=== PATIENT | male | born 1960 | race Caucasian/White ===

== ENCOUNTER → 2016-04-13 | Outpatient (CLI) | payer OTHER ==
[~2016-04-13] MED LIST: ALBU83IN INH; GABA-279 PO; IBUP200C PO; VITA500046 PO
--- NOTE | 2016-04-15 09:45 | REP ---
MRI LUMBAR SPINE WITHOUT CONTRAST: HISTORY: Back pain. COMPARISON: 06/19/2015. Decreased signal intensity on T2-weighted images is present in the lumbar intervertebral discs. The discs are decreased in height. These findings are consistent with disc degeneration. A diffuse disc bulge is present at the L1-2 level. There is minimal compression at the thecal sac. The L1 nerves exit the neural foramina without compression. A diffuse disc bulge is present at the L2-3 level. There is minimal compression of the thecal sac. There is hypertrophy of the posterior articulating facets. A small right intraforaminal and lateral disc protrusion is present. There is posterolateral displacement of the right L2 nerve distal to the neural foramen. The left L2 nerve exits the neural foramen without compression. A diffuse disc bulge is present at the L3-4 level. There is hypertrophy of the ligamenta flava and posterior articulating facets. These findings produce mild central canal stenosis. The L3 nerves exit the neural foramina without compression. A diffuse disc bulge is present at the L4-5 level. There is hypertrophy of the ligamenta flava and posterior articulating facets. These findings produce moderate central canal stenosis. There is compression of the L4 nerves in the neural foramina. A diffuse disc bulge is present at the L5-S1 level. There is no thecal sac compression. There is hypertrophy of the ligamenta flava and posterior articulating facets. There is compression of the right L5 nerve in the neural foramen. The left L5 nerve exits the neural foramen without compression. The conus medullaris is normal in appearance terminating at the level of the L1-2 intervertebral disc. Increased signal intensity on T2-weighted images is present in the end plates of the L1-S1 vertebral bodies. This represents degenerative change. IMPRESSION: 1. Diffuse disc bulge at the L1-2 level with minimal thecal sac compression. 2. Diffuse disc bulge at the L2-3 level with minimal thecal sac compression. A small right intraforaminal and lateral disc protrusion is present. There is posterolateral displacement of the right L2 nerve distal to the neural foramen. 3. Mild central canal stenosis at the L3-4 level secondary to disc bulge, ligamentous and facet hypertrophy. 4. Moderate central canal stenosis at the L4-5 level secondary to disc bulge, ligamentous and facet hypertrophy. There is compression of the L4 nerves in the neural foramina. 5. Diffuse disc bulge at the L5-S1 level without thecal sac compression. There is compression of the right L5 nerve in the neural foramen. There is no significant change compared to the previous study. Signed by Freddie García MD 04/15/2016 09:51 A
== END | disposition home or self-care (01) ==
LOC: M RAD 11:49
PROVIDERS: ATTEND Physician Assistant Medical
DX: M51.06 Intervertebral disc disorders with myelopathy, lumbar region (principal); M48.06 Spinal stenosis, lumbar region; M51.17 Intervertebral disc disorders with radiculopathy, lumbosacral region

== ENCOUNTER → 2016-04-19 | Outpatient (CLI) | payer OTHER ==
[2016-04-19 16:37] LABS: BASO # 0.1 K/mm3 (0.0-0.2); EOS # 0.2 K/mm3 (0.0-0.50); EOS % 3.6 % (0.0-3.0); LYMPH # 2.6 K/mm3 (1.5-4.5); LYMPH % 37.9 % (24.0-44.0); MEAN CORPUSCULAR HEMOGLOBIN 33.5 pg (27.0-33.0); MEAN CORPUSCULAR HGB CONC 33.8 g/dl (32.0-36.5); MEAN CORPUSCULAR VOLUME 98.9 fl (80.0-96.0); MONO # 0.5 K/mm3 (0.0-0.8); MONO % 7.5 % (0.0-5.0); NEUTROPHILS % 47.3 % (36.0-66.0); RED CELL DISTRIBUTION WIDTH 12.4 % (11.5-14.5); WHITE BLOOD COUNT 6.4 K/mm3 (4.0-10.0)
[2016-04-19 16:58] LABS: ALBUMIN 3.7 GM/DL (3.2-5.2); ALBUMIN/GLOBULIN RATIO 0.86 (1.00-1.93); ALKALINE PHOSPHATASE 73 U/L (45-117); ALT/SGPT 20 U/L (12-78); ANION GAP 8 MEQ/L (8-16); AST/SGOT 17 U/L (15-37); BILIRUBIN,TOTAL 0.5 MG/DL (0.2-1.0); BLOOD UREA NITROGEN 4 MG/DL (7-18); CALCIUM LEVEL 9.1 MG/DL (8.5-10.1); CARBON DIOXIDE LEVEL 27 MEQ/L (21-32); CHLORIDE LEVEL 104 MEQ/L (98-107); CHOLESTEROL LEVEL 229 MG/DL (<200); GLOMERULAR FILTRATION RATE > 60.0 (>56); GLUCOSE, FASTING 81 MG/DL (70-105); POTASSIUM SERUM 4.3 MEQ/L (3.5-5.1); SODIUM LEVEL 139 MEQ/L (136-145); TRIGLYCERIDES LEVEL 107 MG/DL (<150)
== END | disposition home or self-care (01) ==
LOC: M LAB 15:47
PROVIDERS: ATTEND Physician Assistant Medical
DX: E55.9 Vitamin D deficiency, unspecified (principal); E78.2 Mixed hyperlipidemia

== ENCOUNTER → 2017-02-03 | Outpatient (CLI) | payer OTHER ==
[~2017-02-03] MED LIST changes: -IBUP200C PO; +IBUP200C10 PO
--- NOTE | 2017-02-03 15:51 | REP ---
Clinical: Hyperlipidemia . Comparison: 09/20/2015 . Technique: PA and lateral. Findings: The mediastinum and cardiac silhouette are normal. The lung campos are clear and without acute consolidation, effusion, or pneumothorax. The skeletal structures are intact and normal. Impression: 1. No acute cardiopulmonary process. Signed by Kai Dexter MD 02/03/2017 03:42 P
--- NOTE | 2017-02-03 16:14 | REP ---
Clinical: Pain with prior trauma. Technique: AP, lateral, and sunrise views of the right knee. Findings: Age-appropriate changes to the knee include cortical irregularity primarily involving the medial femoral condyle and minimal medial joint space narrowing. The patella and patellofemoral joint space appear normal. No acute fracture dislocation. No healed injury. No effusion. Vascular calcifications noted. Impression: Mild age-related changes. Signed by Kai Dexter MD 02/03/2017 04:06 P
[2017-02-03 16:21] LABS: BASO # 0.1 10^3/uL (0.0-0.2); BASO % 1.1 % (0.0-1.0); EOS # 0.2 10^3/uL (0.0-0.50); EOS % 2.1 % (0.0-3.0); IMMATURE GRANULOCYTE % 0.2 % (0-0); LYMPH # 3.3 10^3/uL (1.5-4.5); LYMPH % 39.6 % (24.0-44.0); MEAN CORPUSCULAR HEMOGLOBIN 34.3 pg (27.0-33.0); MEAN CORPUSCULAR HGB CONC 35.5 g/dl (32.0-36.5); MEAN CORPUSCULAR VOLUME 96.6 fl (80.0-96.0); MONO # 0.7 10^3/uL (0.0-0.8); MONO % 7.9 % (0.0-5.0); NEUTROPHILS # 4.1 10^3/uL (1.8-7.7); NEUTROPHILS % 49.1 % (36.0-66.0); PLATELET COUNT, AUTOMATED 162 10^3/uL (150-450); RED CELL DISTRIBUTION WIDTH 12.1 % (11.5-14.5); WHITE BLOOD COUNT 8.2 10^3/uL (4.0-10.0)
[2017-02-03 16:52] LABS: ALBUMIN 3.5 GM/DL (3.2-5.2); ALBUMIN/GLOBULIN RATIO 0.78 (1.00-1.93); ALKALINE PHOSPHATASE 65 U/L (45-117); ALT/SGPT 49 U/L (12-78); ANION GAP 9 MEQ/L (8-16); AST/SGOT 51 U/L (7-37); BILIRUBIN,TOTAL 0.3 MG/DL (0.2-1.0); BLOOD UREA NITROGEN 5 MG/DL (7-18); CALCIUM LEVEL 8.7 MG/DL (8.5-10.1); CARBON DIOXIDE LEVEL 26 MEQ/L (21-32); CHLORIDE LEVEL 101 MEQ/L (98-107); CHOLESTEROL LEVEL 201 MG/DL (<200); CREATININE FOR GFR 0.71 MG/DL (0.70-1.30); FERRITIN 819 NG/ML (26-388); GLOMERULAR FILTRATION RATE > 60.0 (>56); GLUCOSE, FASTING 96 MG/DL (70-105); POTASSIUM SERUM 4.2 MEQ/L (3.5-5.1); SODIUM LEVEL 136 MEQ/L (136-145); TRIGLYCERIDES LEVEL 92 MG/DL (<150)
== END ==
LOC: M LAB 15:07
PROVIDERS: ATTEND Physician Assistant Medical
DX: E78.2 Mixed hyperlipidemia (principal); D69.6 Thrombocytopenia, unspecified; E55.9 Vitamin D deficiency, unspecified; M25.561 Pain in right knee; Z72.0 Tobacco use

== ENCOUNTER → 2017-08-13 | Outpatient (REF) | payer OTHER ==
[2017-08-13 13:57] LABS: ERYTHROCYTE SEDIMENTATION RATE 18 mm/hr (0-20)
[2017-08-13 14:23] LABS: FOLATE 6.5 NG/ML; VITAMIN B12 LEVEL 281 PG/ML
[2017-08-13 14:29] LABS: FREE T4 0.91 NG/DL (0.76-1.46); RHEUMATOID FACTOR QUANT < 10.0 IU/ML (<15.0); TOTAL PROTEIN 7.8 GM/DL (6.4-8.2)
[2017-08-14 10:26] LABS: ALBUMIN 4.11 GM/DL (3.29-5.55); ALBUMIN % 52.7 % (55.8-66.1); ALPHA-1-GLOBULIN % 4.5 % (2.9-4.9); ALPHA-1-GLOBULINS 0.35 GM/DL (0.17-0.41); ALPHA-2-GLOBULINS 0.95 GM/DL (0.42-0.99); ALPHA-2-GLOBULINS % 12.2 % (7.1-11.8); BETA-1-GLOBULINS 0.46 GM/DL (0.28-0.60)
[2017-08-14 10:27] LABS: BETA-1-GLOBULINS % 5.9 % (4.7-7.2); BETA-2-GLOBULINS 0.56 GM/DL (0.19-0.55); BETA-2-GLOBULINS % 7.2 % (3.2-6.5); GAMMA GLOBULIN % 17.5 % (11.1-18.8); GAMMA GLOBULINS 1.37 GM/DL (0.65-1.58)
[2017-08-14 14:14] LABS: ANTINUCLEAR ANTIBODIES DIRECT Negative (Negative)
[2017-08-16 14:09] LABS: VITAMIN E(ALPHA TOCOPHEROL) 5.6 mg/L (7.0-25.1); VITAMIN E(GAMMA TOCOPHEROL) 1.5 mg/L (0.5-5.5)
[2017-08-19 14:16] LABS: VITAMIN B1 LEVEL WHOLE BLOOD 94.3 nmol/L (66.5-200.0); VITAMIN B6,PYRIDOXAL PHOSPHATE 7.7 ug/L (5.3-46.7)
[2017-08-20 13:33] LABS: DRVV SCREEN 39.9 SEC
[2017-08-20 13:36] LABS: PTT LUPUS TYPE ANTICOAG SCREEN 0.9 (0-1.2)
== END ==
LOC: M LABNEURO 10:00
DX: G62.9 Polyneuropathy, unspecified (principal)
CPT/HCPCS: 82746

== ENCOUNTER → 2017-08-13 | Outpatient (REF) | payer OTHER ==
[2017-08-13 13:33] LABS: HEMATOCRIT 45.2 % (42.0-52.0); HEMOGLOBIN 15.7 g/dl (13.5-17.5); MEAN CORPUSCULAR HEMOGLOBIN 33.4 pg (27.0-33.0); MEAN CORPUSCULAR HGB CONC 34.7 g/dl (32.0-36.5); MEAN CORPUSCULAR VOLUME 96.2 fl (80.0-96.0); PLATELET COUNT, AUTOMATED 115 10^3/uL (150-450); RED CELL DISTRIBUTION WIDTH 13.7 % (11.5-14.5); WHITE BLOOD COUNT 6.5 10^3/uL (4.0-10.0)
[2017-08-13 14:19] LABS: ALBUMIN 3.6 GM/DL (3.2-5.2); ALBUMIN/GLOBULIN RATIO 0.86 (1.00-1.93); ALKALINE PHOSPHATASE 68 U/L (45-117); ALT/SGPT 20 U/L (12-78); ANION GAP 11 MEQ/L (8-16); AST/SGOT 22 U/L (7-37); BILIRUBIN,TOTAL 0.2 MG/DL (0.2-1.0); BLOOD UREA NITROGEN 3 MG/DL (7-18); CALCIUM LEVEL 8.6 MG/DL (8.5-10.1); CARBON DIOXIDE LEVEL 23 MEQ/L (21-32); CHLORIDE LEVEL 106 MEQ/L (98-107); CHOLESTEROL LEVEL 178 MG/DL (<200); CHOLESTEROL RISK RATIO 2.373 (<5); CREATININE FOR GFR 0.81 MG/DL (0.70-1.30); GLOMERULAR FILTRATION RATE > 60.0 (>56); GLUCOSE, FASTING 86 MG/DL (70-100); HDL CHOLESTEROL 75 MG/DL (>40); LDL CHOLESTEROL 85.8 MG/DL (<100); NON-HDL-C 103 MG/DL; POTASSIUM SERUM 3.8 MEQ/L (3.5-5.1); PROSTATIC SPECIFIC AG MONITOR 1.29 NG/ML (< 4.0); SODIUM LEVEL 140 MEQ/L (136-145); TOTAL PROTEIN 7.8 GM/DL (6.4-8.2); TRIGLYCERIDES LEVEL 86 MG/DL (<150)
== END ==
LOC: M LABNEURO 10:53
DX: J44.9 Chronic obstructive pulmonary disease, unspecified (principal); I10 Essential (primary) hypertension; N40.0 Benign prostatic hyperplasia without lower urinary tract symptoms; R53.83 Other fatigue

== ENCOUNTER → 2017-09-02 | Outpatient (CLI) | payer OTHER | LOC: M RAD 17:52 | DX: M47.12 Other spondylosis with myelopathy, cervical region (principal); M47.16 Other spondylosis with myelopathy, lumbar region; M47.892 Other spondylosis, cervical region; M47.896 Other spondylosis, lumbar region | CPT/HCPCS: 72141 ==

== ENCOUNTER → 2017-09-04 | Outpatient (CLI) | payer OTHER | LOC: M RAD 14:59 | DX: M47.12 Other spondylosis with myelopathy, cervical region (principal); M47.16 Other spondylosis with myelopathy, lumbar region; M51.26 Other intervertebral disc displacement, lumbar region | CPT/HCPCS: 72148 ==

== ENCOUNTER 2017-12-06 11:06 | Emergency (ER) | payer OTHER ==
[2017-12-06] MEDS: IPRATROPIUM 0.5MG/ALBUTEROL 2.5MG INH SOL UD 3ML (DUONEB)(J7620) NEB (11:25)
[2017-12-06] MEDS ORDERED: NITROGLYCERIN 0.4 MG SUBL TABLET As Ordered (11:26)
[2017-12-06] MEDS: NITROGLYCERIN 0.4 MG SUBL TABLET SL ×3 (11:28→11:43)
[2017-12-06] MEDS: ASPIRIN 81 MG CHEW TABLET PO ×2 (11:29→11:30)
[2017-12-06] MEDS: HEPARIN SOD (PORCINE) 5000 UNITS/ML VIAL IV (11:30)
[2017-12-06] MEDS ORDERED: ALBUTEROL SULFATE 2.5 MG/0.5 ML INH NEB SOLN INH (11:30)
[2017-12-06] MEDS: NS 500 ML IV (11:30)
[2017-12-06 11:32] LABS: BASO % 0.2 % (0.0-1.0); HEMATOCRIT 47.9 % (42.0-52.0); HEMOGLOBIN 17.2 g/dl (13.5-17.5); IMMATURE GRANULOCYTE % 0.5 % (0-3.0); LYMPH # 1.5 10^3/uL (1.5-4.5); LYMPH % 13.8 % (24.0-44.0); MEAN CORPUSCULAR HEMOGLOBIN 34.3 pg (27.0-33.0); MEAN CORPUSCULAR HGB CONC 35.9 g/dl (32.0-36.5); MEAN CORPUSCULAR VOLUME 95.6 fl (80.0-96.0); MONO # 0.5 10^3/uL (0.0-0.8); MONO % 4.9 % (0.0-5.0); NEUTROPHILS # 8.8 10^3/uL (1.8-7.7); NEUTROPHILS % 80.6 % (36.0-66.0); PLATELET COUNT, AUTOMATED 118 10^3/uL (150-450); RED BLOOD COUNT 5.01 10^6/uL (4.30-6.10); RED CELL DISTRIBUTION WIDTH 12.5 % (11.5-14.5)
[2017-12-06] MEDS ORDERED: CLOPIDOGREL 300 MG TAB (PLAVIX) As Ordered (11:38)
[2017-12-06] MEDS ORDERED: HEPARIN 25,000 UNITS/250 ML D5W BAG (100 UNITS/ML) As Ordered (11:38)
[2017-12-06] MEDS ORDERED: HEPARIN SOD (PORCINE) 5000 UNITS/ML VIAL As Ordered (11:38)
[2017-12-06] MEDS: TENECTEPLASE 50 MG KIT (TNKase)(J3101) IV (11:49)
[2017-12-06] MEDS: CLOPIDOGREL 300 MG TAB (PLAVIX) PO (11:49)
[2017-12-06] MEDS: HEPARIN DRIP 25,000 UNITS in APPROPRIATE DILUENT 1 EA IV (11:51)
[2017-12-06 11:55] LABS: INR 1.01; PROTHROMBIN TIME 13.4 SECONDS (12.1-14.4)
[2017-12-06] MEDS: PIPERACILLIN/TAZOBACTAM SOD 3.375 GM in D5W MINI-BAG PLUS 50 ML IV (11:55)
[2017-12-06 11:56] LABS: PARTIAL THROMBOPLASTIN TIME 24.2 SECONDS (25.4-37.6)
[2017-12-06] MEDS: ONDANSETRON 4MG/2ML VIAL (J2405) IV (12:02)
[2017-12-06] MEDS: methylPREDNISolone INJ 40 MG/1 ML VIAL (J2920) IV (12:02)
[2017-12-06] MEDS: MORPHINE 2 MG/ML 1ML SYRINGE (J2270) IV (12:03)
[2017-12-06 12:11] LABS: ALBUMIN 3.8 GM/DL (3.2-5.2); ALBUMIN/GLOBULIN RATIO 0.86 (1.00-1.93); ALKALINE PHOSPHATASE 54 U/L (45-117); ALT/SGPT 75 U/L (12-78); ANION GAP 15 MEQ/L (8-16); AST/SGOT 363 U/L (7-37); BILIRUBIN,DIRECT 0.2 MG/DL (0.0-0.2); BILIRUBIN,TOTAL 0.9 MG/DL (0.2-1.0); BLOOD UREA NITROGEN 7 MG/DL (7-18); CALCIUM LEVEL 9.1 MG/DL (8.5-10.1); CARBON DIOXIDE LEVEL 19 MEQ/L (21-32); CHLORIDE LEVEL 96 MEQ/L (98-107); CPK CREATINE PHOSPHOKINASE 3176 U/L (39-308); CREATININE FOR GFR 1.01 MG/DL (0.70-1.30); FREE T4 0.85 NG/DL (0.76-1.46); GLOMERULAR FILTRATION RATE > 60.0 (>56); GLUCOSE, FASTING 239 MG/DL (70-100); LIPASE 102 U/L (73-393); MB/CK RELATIVE INDEX 13.65 (< OR =4); NT-PRO BNP 3962 PG/ML (<125); SODIUM LEVEL 130 MEQ/L (136-145); TOTAL PROTEIN 8.2 GM/DL (6.4-8.2)
[2017-12-06] MEDS: NS 1,000 ML IV (12:18)
[2017-12-06] MEDS: NITROGLYCERIN/D5W 100MCG/ML 25 MG in APPROPRIATE DILUENT 1 EA IV (12:19)
[2017-12-06] MEDS: LORazepam 2 MG/ML VIAL (J2060) IV (12:24)
== END 2017-12-06 12:38 | disposition short-term general hospital (02) ==
LOC: M ED 11:06
DX: I21.19 ST elevation (STEMI) myocardial infarction involving other coronary artery of inferior wall (principal); I70.90 Unspecified atherosclerosis; I10 Essential (primary) hypertension; F17.210 Nicotine dependence, cigarettes, uncomplicated
CPT/HCPCS: J2405

== ENCOUNTER → 2019-05-21 | Outpatient (CLI) | payer OTHER ==
[~2019-05-21] MED LIST changes: +ARNU1INH; +DOXA1TAB42; +GABA-1171 PO; -GABA-279 PO; +HYDR-3719 PO; -IBUP200C10 PO; +IBUP200C25 PO; +VENTAER
--- NOTE | 2019-05-21 16:48 | REP ---
HISTORY: Back pain and lower extremity radicular symptoms. COMPARISON: 09/02/2017 Large partial syndesmophytes are again seen bilaterally at L3-4 and on the left at L2-3, status quo. Smaller partial syndesmophytes are seen at L4-5 bilaterally. The pedicles are intact bilaterally. There is no spondylolysis or spondylolisthesis. There is posterior disc space narrowing and anterior lipping at every level, status quo. There are degenerative facet joint changes seen bilaterally at every level again particularly at L4-5 and L5-S1. IMPRESSION: Chronic changes essentially stable from the prior examination as described above. Electronically Signed by Clement Joshi DO 05/21/2019 06:47 P
== END ==
LOC: M RAD 15:22
PROVIDERS: ATTEND Family Medicine
DX: M54.30 Sciatica, unspecified side (principal)

== ENCOUNTER 2019-08-31 19:38 | Emergency (ER) | payer OTHER ==
[~2019-08-31] VITALS: Ht 170.2 cm; Wt 61.4 kg
[2019-08-31 19:49] VITALS: BP 139/90
[2019-08-31] MEDS ORDERED: ALBUTEROL (19:54)
[2019-08-31 20:30] LABS: BASO % 0.9 % (0.0-1.0); EOS % 0.7 % (0.0-3.0); HEMATOCRIT 36.2 % (42.0-52.0); LYMPH # 1.5 10^3/uL (1.5-5.0); LYMPH % 32.3 % (24.0-44.0); MEAN CORPUSCULAR HEMOGLOBIN 34.9 pg (27.0-33.0); MEAN CORPUSCULAR HGB CONC 35.9 g/dl (32.0-36.5); MEAN CORPUSCULAR VOLUME 97.3 fl (80.0-96.0); MONO # 0.3 10^3/uL (0.0-0.8); MONO % 7.3 % (0.0-5.0); NEUTROPHILS # 2.6 10^3/uL (1.5-8.5); NEUTROPHILS % 58.4 % (36.0-66.0); RED BLOOD COUNT 3.72 10^6/uL (4.30-6.10); WHITE BLOOD COUNT 4.5 10^3/uL (4.0-10.0)
[2019-08-31 20:44] LABS: BLOOD UREA NITROGEN 8 MG/DL (7-18); CARBON DIOXIDE LEVEL 23 MEQ/L (21-32); CHLORIDE LEVEL 89 MEQ/L (98-107); CREATININE FOR GFR 0.72 MG/DL (0.70-1.30); ETHYL ALCOHOL (ETHANOL) 0.256 % (0.000-0.010); GLOMERULAR FILTRATION RATE > 60.0 (>56); GLUCOSE, FASTING 86 MG/DL (70-100); POTASSIUM SERUM 3.5 MEQ/L (3.5-5.1); SODIUM LEVEL 127 MEQ/L (136-145)
--- NOTE | 2019-08-31 20:48 | REPVR ---
PROCEDURE INFORMATION: Exam: CT Maxillofacial Without Contrast Exam date and time: 08/31/2019 8:18 PM Age: 59 years old Clinical indication: Injury or trauma; Fall; Initial encounter; Blunt trauma (contusions or hematomas); Ocular (eye or eyeball); Left TECHNIQUE: Imaging protocol: Computed tomography images of the face without contrast. Radiation optimization: All CT scans at this facility use at least one of these dose optimization techniques: automated exposure control; mA and/or kV adjustment per patient size (includes targeted exams where dose is matched to clinical indication); or iterative reconstruction. COMPARISON: No relevant prior studies available. FINDINGS: Orbits: Orbits are normal. Globes are unremarkable. Bones/joints: Mild degenerative spondylosis cervical spine. Sinuses: Inflammatory changes right maxillary sinus. Irregular contour along the anterior wall of the left maxillary sinus may be the result of trauma, age indeterminate in the absence of any soft tissue edema in the pre maxillary soft tissues. Irregular thickening of the posterior and anterior wall of the right maxillary sinus extending into the anterior zygomatic arch may represent fibrous dysplasia. Soft tissues: Left periorbital soft tissue edema. IMPRESSION: 1. Left periorbital soft tissue edema. No fracture. 2. Inflammatory changes right maxillary sinus. Irregular contour along the anterior wall of the left maxillary sinus may be the result of trauma, age indeterminate in the absence of any soft tissue edema in the pre maxillary soft tissues. Electronically signed by: Surjit Ley On 08/31/2019 20:48:00 PM
--- NOTE | 2019-08-31 20:50 | REPVR ---
PROCEDURE INFORMATION: Exam: CT Head Without Contrast Exam date and time: 08/31/2019 8:18 PM Age: 59 years old Clinical indication: Injury or trauma; Fall; Initial encounter; Blunt trauma (contusions or hematomas) TECHNIQUE: Imaging protocol: Computed tomography of the head without contrast. Radiation optimization: All CT scans at this facility use at least one of these dose optimization techniques: automated exposure control; mA and/or kV adjustment per patient size (includes targeted exams where dose is matched to clinical indication); or iterative reconstruction. COMPARISON: No relevant prior studies available. FINDINGS: Brain: Mild parenchymal atrophy. Otherwise unremarkable. Ventricles: The degree of ventricular dilatation is normal for age and/or degree of atrophy present. Bones/joints: Unremarkable. No acute fracture. Sinuses: Visualized sinuses are unremarkable. No fluid levels. Mastoid air cells: Visualized mastoid air cells are well aerated. Vasculature: Atherosclerotic calcifications in the intracranial carotid arteries. Soft tissues: Left periorbital soft tissue edema. IMPRESSION: 1. Left periorbital soft tissue edema. No fracture. 2. Mild parenchymal atrophy. 3. The degree of ventricular dilatation is normal for age and/or degree of atrophy present. Electronically signed by: Surjit Ley On 08/31/2019 20:50:02 PM
[2019-08-31 20:54] LABS: PLATELET COUNT, AUTOMATED 45 10^3/uL (150-450)
--- NOTE | 2019-08-31 20:55 | REPVR ---
PROCEDURE INFORMATION: Exam: CT Cervical Spine Without Contrast Exam date and time: 08/31/2019 8:18 PM Age: 59 years old Clinical indication: Injury or trauma; Fall; Initial encounter; Blunt trauma TECHNIQUE: Imaging protocol: Computed tomography images of the cervical spine without contrast. Radiation optimization: All CT scans at this facility use at least one of these dose optimization techniques: automated exposure control; mA and/or kV adjustment per patient size (includes targeted exams where dose is matched to clinical indication); or iterative reconstruction. COMPARISON: MRI-Spine,Cervical without con 09/02/2017 7:16 PM FINDINGS: Vertebrae: Mild disc space narrowing at C5-C6 and C6-C7 with small intervertebral osteophytes. Posterior annular bulge at C2-C3, C3-C4, C4-C5 with disc osteophyte complexes at C5-C6 and C6-C7 result in varying degrees of effacement of the ventral subarachnoid space with minimal left hemicord impingement at C3-C4 and mild cord impingement at C4-C5. Discs/Spinal canal/Neural foramina: There are degenerative changes demonstrated in the atlantoaxial joint at C1-C2 with osteophytes and joint space narrowing. The transverse ligament is unremarkable. Mild to moderate bilateral foraminal narrowing at C4, severe foraminal narrowing on the right and moderate to severe foraminal narrowing on the left at C5, severe bilateral foraminal narrowing at C6 secondary to uncinate joint hypertrophic changes. Soft tissues: See "C1-C2" finding. Sinuses: Inflammatory changes right maxillary sinus. Thickening of the posterior right maxillary sinus wall may represent a fibrous dysplasia. Mastoid air cells: Sclerosis at the right mastoid tip may represent the sequelae of prior mastoiditis. Lungs: Bilateral paraseptal and centrilobular emphysema in the lung apices. IMPRESSION: Degenerative spondylosis as described above without acute findings. Electronically signed by: Surjit Ley On 08/31/2019 20:55:18 PM
--- NOTE | 2019-08-31 20:58 | REPVR ---
PROCEDURE INFORMATION: Exam: CT Chest Without Contrast Exam date and time: 08/31/2019 8:42 PM Age: 59 years old Clinical indication: Pain; Other: R rib; Additional info: R rib pain TECHNIQUE: Imaging protocol: Computed tomography of the chest without contrast. 3D rendering: MIP and/or 3D reconstructed images were created by the technologist. Radiation optimization: All CT scans at this facility use at least one of these dose optimization techniques: automated exposure control; mA and/or kV adjustment per patient size (includes targeted exams where dose is matched to clinical indication); or iterative reconstruction. COMPARISON: CT ANGIO CHEST 12/22/2014 8:11 PM FINDINGS: Lungs: Unremarkable. No consolidation or focal infiltrates. No masses. Pleural space: Unremarkable. No pneumothorax. No pleural effusion. Heart: Coronary artery stents are noted. Pulmonary arteries: The main pulmonary artery measures 22 mm. Aorta: The ascending thoracic aorta measures 30 mm. Lymph nodes: Unremarkable. No enlarged lymph nodes. Liver: The liver attenuation is -10 Hounsfield units and the spleen is 50 Hounsfield units. Bones/joints: Unremarkable. No acute fracture. Soft tissues: Unremarkable. Other findings: Very minimal diffuse bullous change. IMPRESSION: 1. Very minimal diffuse bullous change. 2. Fatty infiltration of the liver. 3. Otherwise negative CT chest. No fractures. Electronically signed by: Antony Milian On 08/31/2019 20:58:18 PM
[2019-08-31] MEDS ORDERED: NS 1,000 ML IV ONE (21:00)
== END 2019-08-31 23:58 | disposition home or self-care (01) ==
LOC: M ED 19:38
DX: S00.83XA Contusion of other part of head, initial encounter (principal); W18.39XA Other fall on same level, initial encounter; Y92.018 Other place in single-family (private) house as the place of occurrence of the external cause; F10.129 Alcohol abuse with intoxication, unspecified; Y90.1 Blood alcohol level of 20-39 mg/100 ml; I25.10 Atherosclerotic heart disease of native coronary artery without angina pectoris; Z88.8 Allergy status to other drugs, medicaments and biological substances
CPT/HCPCS: 70450; 70486; 71250; 72125; 80048; 85025; 85049; 85055; 96360; 99284; G0480

== ENCOUNTER 2020-01-16 14:14 | Inpatient (IN) | payer OTHER ==
[~2020-01-16] VITALS: Ht 167.6 cm; Wt 52.2 kg
[~2020-01-16 14:14] MED LIST changes: +ALBUTEROL; -DOXA1TAB42; +DOXA1TAB42 PO; -VENTAER; +VENTAER INH
[2020-01-16] MEDS ORDERED: MULTIVITAMIN -ADULT INJECTION 10 ML, THIAMINE INJection 100 MG, FOLIC ACID 1 MG in NS 1... IV ONE (14:45)
[2020-01-16] MEDS ORDERED: LORazepam 2 MG TAB PO PRN ×2 (14:45→17:00)
[2020-01-16 15:09] LABS: BASO % 0.4 % (0.0-1.0); EOS % 0.2 % (0.0-3.0); HEMATOCRIT 29.3 % (42.0-52.0); HEMOGLOBIN 10.3 g/dl (13.5-17.5); LYMPH # 0.9 10^3/uL (1.5-5.0); LYMPH % 19.5 % (24.0-44.0); MEAN CORPUSCULAR HEMOGLOBIN 33.2 pg (27.0-33.0); MEAN CORPUSCULAR HGB CONC 35.2 g/dl (32.0-36.5); MEAN CORPUSCULAR VOLUME 94.5 fl (80.0-96.0); MONO # 0.3 10^3/uL (0.0-0.8); MONO % 7.1 % (0.0-5.0); NEUTROPHILS # 3.4 10^3/uL (1.5-8.5); NEUTROPHILS % 71.9 % (36.0-66.0); WHITE BLOOD COUNT 4.7 10^3/uL (4.0-10.0)
[2020-01-16 15:13] LABS: PLATELET COUNT, AUTOMATED 47 10^3/uL (150-450)
[2020-01-16 15:18] LABS: INR 1.15
[2020-01-16 15:19] LABS: PARTIAL THROMBOPLASTIN TIME 29.1 SECONDS (24.2-38.5)
[2020-01-16 15:36] LABS: OSMOLALITY SERUM 292 MOSM/KG (275-295)
[2020-01-16 15:44] LABS: ACETAMINOPHEN LEVEL < 2.0 UG/ML (10.0-30.0); ALBUMIN 2.8 GM/DL (3.2-5.2); ALT/SGPT 58 U/L (12-78); BILIRUBIN,DIRECT 1.2 MG/DL (0.0-0.2); BILIRUBIN,TOTAL 1.7 MG/DL (0.2-1.0); BLOOD UREA NITROGEN 8 MG/DL (7-18); CALCIUM LEVEL 8.7 MG/DL (8.5-10.1); CARBON DIOXIDE LEVEL 29 MEQ/L (21-32); CHLORIDE LEVEL 82 MEQ/L (98-107); CK-MB VALUE MASS 2.5 NG/ML (<3.6); CPK CREATINE PHOSPHOKINASE 150 U/L (39-308); CREATININE FOR GFR 0.51 MG/DL (0.70-1.30); ETHYL ALCOHOL (ETHANOL) 0.155 % (0.000-0.010); GLOMERULAR FILTRATION RATE > 60.0 (>56); GLUCOSE, FASTING 108 MG/DL (70-100); IRON (FE) 94 UG/DL (65-175); MAGNESIUM LEVEL 1.9 MG/DL (1.8-2.4); MB/CK RELATIVE INDEX 1.67 (< OR =4); POTASSIUM SERUM 2.5 MEQ/L (3.5-5.1); SALICYLATE LEVEL 5.1 MG/DL (5.0-30.0); SODIUM LEVEL 124 MEQ/L (136-145); TOTAL IRON BINDING CAPACITY 171 UG/DL (250-450); TOTAL PROTEIN 6.9 GM/DL (6.4-8.2); TROPONIN I < 0.02 NG/ML (< 0.10)
[2020-01-16] MEDS ORDERED: POTASSIUM CHLORIDE 10 MEQ SR TABLET PO ONE ×2 (15:45→23:30)
[2020-01-16] MEDS ORDERED: KCL 10MEQ/100ML SWI (KRUN) 10 MEQ in IV 1 EA IV ONE (15:45)
--- NOTE | 2020-01-16 15:59 | REP ---
INDICATION: Altered Mental Status. COMPARISON: 08/31/2019 TECHNIQUE: Noncontrast CT with coronal soft tissue reconstructions. FINDINGS: Lateral ventricles are midline, symmetric and their size proportionate to the cerebral atrophy which I regard as moderate. That atrophy is much greater than I would expect for the given age. It is greatest in the temporal and frontal lobes but present throughout. 3rd and 4th ventricles also proportionate size. Basal ganglia were symmetric. There is no vascular territory infarct, intracranial hemorrhage or mass/mass effect. No extra-axial fluid collection. Some subtle heterogeneous white matter changes present which may reflect small vessel ischemic disease. The posterior fossa and, brainstem grossly intact. There is atrophy of the cerebellum which is moderate considering the patient's age. No posterior fossa hemorrhage. Basal cisterns intact. Mastoids were normal and there is mucosal thickening in the [place] of the right maxillary sinus, the other sinuses clear. Skull base and calvarium show no fracture or focal lesion. IMPRESSION: 1. Moderate atrophy with the ventricular system proportionate to the atrophy. However the atrophy is much greater than I would expect for stated age. Findings stable. 2. No intracranial hemorrhage or acute infarct. There are chronic small-vessel white matter ischemic changes. Cerebellar atrophy noted. Basal cisterns intact. 3. No acute infarct, mass or bony abnormality of the skull base or calvarium. 4. Right maxillary sinus mucosal thickening. No other finding . <Electronically signed by Arun Wang > 01/16/20 [id number]
--- NOTE | 2020-01-16 15:59 | REP ---
INDICATION: Altered Mental Status. COMPARISON: CT 08/31/2019, AP portable 12/06/2017 TECHNIQUE: AP portable seated FINDINGS: Lung campos are well inflated without infiltrate effusion atelectasis or mass. The heart, mediastinal and hilar contours are normal. The aorta and airway are intact. No widening of the mediastinum. Bony thorax unremarkable. No free air under the diaphragm. IMPRESSION: 1. No acute cardiopulmonary change. <Electronically signed by Arun Wang > 01/16/20 [id number]
[2020-01-16] MEDS ORDERED: ACETAMINOPHEN TAB 650MG DOSE (2X325MG) PO PRN (16:45)
[2020-01-16] MEDS ORDERED: IPRATROPIUM 0.5MG/ALBUTEROL 2.5MG INH SOL UD 3ML (DUONEB) NEB PRN (17:00)
--- NOTE | 2020-01-16 17:03 | HPEPDOC ---
General Date of Admission 01/16/20 Date of Service: Jan 16, 2020 Chief Complaint The patient is a 59-year-old male admitted with a reason for visit of ETOH/failure to thrive. Source: Patient, EMS notes reviewed Exam Limitations: Clinical conditions, Intoxication Severity: Moderate Associated Symptoms: Weakness History of Present Illness Patient is 59 years old male with past history of chronic alcoholism, coronary artery diseases with MD and stents placement, COPD, active smoker 2 packs in a day presented to the hospital with generalized weakness. Patient stated that he has been having generalized weakness for past 3 weeks and weakness became progressively worse. He was not able to walk for few days. Also patient stated that he lost his appetite. Of note, patient states that he usually drinks beer 6 bottles in the day. In emergency room patient was found to have sodium of 124, potassium 2.5, lactic acid 2.9, platelets 46. Urine toxic screen positive for alcohol. Home Medications Scheduled Cholecalciferol (Vitamin D) 5,000 Unit Tab, 5,000 UNIT PO QWEEK, (Reported) Miscellaneous Medications Albuterol Sulfate (Ventolin Hfa) 108 Mcg/Act Aer, (Reported) Doxazosin Mesylate (Doxazosin Mesylate) 1 Mg Tab, (Reported) Fluticasone Furoate (Arnuity Ellipta) 100 Mcg/Act Inh, (Reported) [Albuterol] , (Reported) Allergies Coded Allergies: lisinopril (Verified Adverse Reaction, Intermediate, CHESTMOIN, 08/31/19) Past Medical History Medical History chronic alcoholism, coronary artery diseases with MD and stents placement, COPD, active smoker 2 packs in a day Surgical History Stents placement in 2018 Family History I personally reviewed family history and found not pertinent Social History * Smoker: current smoker Alcohol: heavy Drugs: denies A-FIB/CHADSVASC A-FIB History Current/History of A-Fib/PAF?: No Current PO Anticoag Therapy: No Review of Systems Constitutional: Reports: Malaise, Weakness; Denies: Chills, Fever Eyes: Denies: Pain ENT: Denies: Head Aches Skin: Denies: Rash Pulmonary: Denies: Dyspnea Cardiovascular: Denies: Chest Pain Gastrointestinal: Reports: Nausea; Denies: Vomiting Genitourinary: Denies: Dysuria, Frequency Hematologic: Denies: Bruising Endocrine: Denies: Polydipsia Musculoskeletal: Denies: Neck Pain Neurological: Denies: Weakness Psych: Reports: Mood Normal Physical Examination General Exam: Positive: Alert, Cooperative Eye Exam: Positive: PERRLA ENT Exam: Positive: Atraumatic Neck Exam: Positive: Supple; Negative: JVD Chest Exam: Positive: Rhonchi Heart Exam: Positive: Rate Normal Telemetry: Positive: No significant arrhythmia Abdomen Exam: Positive: Normal bowel sounds Extremity Exam: Negative: Clubbing, Cyanosis Skin Exam: Positive: Nl turgor and temperature Neuro Exam: Positive: Cranial Nerves 3-12 NL Psych Exam: Positive: Mental status NL Vital Signs Vital Signs Date Time Temp Pulse Resp B/P (MAP) Pulse Ox O2 Delivery O2 Flow Rate FiO2 01/16/20 15:24 76 14 102/62 (75) 100 Room Air Laboratory Data Labs 24H Laboratory Tests 2 01/16/20 14:55: Immature Granulocyte % (Auto) 0.9, Neutrophils (%) (Auto) 71.9H, Lymphocytes (%) (Auto) 19.5L, Monocytes (%) (Auto) 7.1H, Eosinophils (%) (Auto) 0.2, Basophils (%) (Auto) 0.4, Neutrophils # (Auto) 3.4, Lymphocytes # (Auto) 0.9L, Monocytes # (Auto) 0.3, Eosinophils # (Auto) 0.0, Basophils # (Auto) 0.0, Nucleated Red Blood Cells % (auto) 0.9H, Immature Platelet Fraction 7.7, Prothrombin Time 15.0H, Prothromb Time International Ratio 1.15, Activated Partial Thromboplast Time 29.1, Anion Gap 13, Glomerular Filtration Rate > 60.0, Osmolality 292, Lactic Acid Level 2.9*H, Calcium Level 8.7, Magnesium Level 1.9, Iron Level 94, Total Iron Binding Capacity 171L, Transferrin % Saturation 55.0H, Total Bilirubin 1.7H, Direct Bilirubin 1.2H, Aspartate Amino Transf (AST/SGOT) 146H, Alanine Aminotransferase (ALT/SGPT) 58, Alkaline Phosphatase 132H, Ammonia 26, Total Creatine Kinase 150, Creatine Kinase MB 2.5, Creatine Kinase MB Relative Index 1.67, Troponin I < 0.02, Total Protein 6.9, Albumin 2.8L, Albumin/Globulin Ratio 0.7, Thyroid Stimulating Hormone (TSH) 3.300, Salicylates Level 5.1, Acetaminophen Level < 2.0L, Ethyl Alcohol Level 0.155H CBC/BMP Laboratory Tests 01/16/20 14:55 Assessment/Plan Patient is 59 years old male with past history of chronic alcoholism, coronary artery diseases with MD and stents placement, COPD, active smoker 2 packs in a day presented to the hospital with generalized weakness. Patient stated that he has been having generalized weakness for past 3 weeks and weakness became progressively worse. He was not able to walk for few days. Also patient stated that he lost his appetite. Of note, patient states that he usually drinks beer 6 bottles in the day. In emergency room patient was found to have sodium of 124, potassium 2.5, lactic acid 2.9, platelets 46. Urine toxic screen positive for alcohol. 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 (2) Alcohol abuse with intoxication Status: Acute Problem Text: CIWA protocol (3) Hyponatremia Status: Acute Problem Text: Secondary to most likely beer potomania BMP every 4 hours Fluid restriction Will check urine osmolarity, serums modality, urine lites (4) Thrombocytopenia Status: Chronic Problem Text: Secondary to alcoholism Anticoagulation on hold (5) COPD (chronic obstructive pulmonary disease) Status: Chronic Problem Text: Continue inhalers (6) Coronary artery disease Status: Chronic Problem Text: I started metoprolol, statin and aspirin Plan / VTE VTE Prophylaxis Ordered?: No VTE Exclusion Mechanical Proph: Other (low platelets count) AYDE LLANES DO Jan 16, 2020 17:03
[2020-01-16] MEDS ORDERED: PLAV1TAB2 PO (17:11)
[2020-01-16] MEDS ORDERED: ASPI81TA26 PO (17:11)
[2020-01-16] MEDS ORDERED: FLUTISP NARES (17:11)
[2020-01-16] MEDS ORDERED: DRIS50003 PO (17:11)
[2020-01-16] MEDS ORDERED: FLUTICASONE PROP 0.05% NASAL SPRAY 16 GM (FLONASE) NARES PRN (17:15)
[2020-01-16] MEDS ORDERED: ASPIRIN 81 MG CHEW TABLET PO ONE (18:00)
[2020-01-16 18:20] VITALS: BP 119/65
[2020-01-16 18:26] VITALS: BP 119/65
[2020-01-16] MEDS: CLOPIDOGREL 75 MG TAB PO SCH (18:56)
[2020-01-16] MEDS: KCL 10MEQ/100ML SWI (KRUN) 10 MEQ in IV 1 EA IV ONE ×2 (18:58→21:13)
[2020-01-16 19:55] LABS: OSMOLALITY SERUM 284 MOSM/KG (275-295)
[2020-01-16 20:04] LABS: BLOOD UREA NITROGEN 6 MG/DL (7-18); CALCIUM LEVEL 7.8 MG/DL (8.5-10.1); CARBON DIOXIDE LEVEL 27 MEQ/L (21-32); CHLORIDE LEVEL 89 MEQ/L (98-107); CREATININE FOR GFR 0.46 MG/DL (0.70-1.30); GLOMERULAR FILTRATION RATE > 60.0 (>56); GLUCOSE, FASTING 86 MG/DL (70-100); POTASSIUM SERUM 2.7 MEQ/L (3.5-5.1); SODIUM LEVEL 128 MEQ/L (136-145)
[2020-01-16] MEDS ORDERED: HEPARIN SOD (PORCINE) 5000UNITS/ML 1ML VIAL/SYRINGE SC SCH (21:00)
[2020-01-16 21:07] VITALS: BP 106/63
[2020-01-16 22:03] LABS: AMPHETAMINES LEVEL URINE NEGATIVE (NEGATIVE); BARBITURATES URINE NEGATIVE (NEGATIVE); BENZODIAZEPINES URINE NEGATIVE (NEGATIVE); CANNABINOIDS URINE POSITIVE (NEGATIVE); COCAINE METABOLITE URINE NEGATIVE (NEGATIVE); METHADONE URINE NEGATIVE (NEGATIVE); OPIATES URINE NEGATIVE (NEGATIVE); PHENCYCLIDINE URINE NEGATIVE (NEGATIVE)
[2020-01-16 22:52] VITALS: BP 102/64
[2020-01-16 22:53] VITALS: BP 102/64
[2020-01-16] MEDS: DOXAZOSIN MESYLATE 1 MG TAB PO SCH (23:14)
[2020-01-16] MEDS ORDERED: NICOTINE 21MG/24HR 1 EA TRANSDERMAL TD PRN (23:15)
[2020-01-16] MEDS ORDERED: MAG SULF 1GM/100ML (MAG RUN) 1 GM in IV 1 EA IV ONE (23:30)
[2020-01-16 23:40] LABS: BLOOD UREA NITROGEN 6 MG/DL (7-18); CALCIUM LEVEL 7.7 MG/DL (8.5-10.1); CARBON DIOXIDE LEVEL 26 MEQ/L (21-32); CHLORIDE LEVEL 91 MEQ/L (98-107); CREATININE FOR GFR 0.44 MG/DL (0.70-1.30); GLOMERULAR FILTRATION RATE > 60.0 (>56); GLUCOSE, FASTING 104 MG/DL (70-100); POTASSIUM SERUM 3.2 MEQ/L (3.5-5.1); SODIUM LEVEL 130 MEQ/L (136-145)
[2020-01-16] MEDS: ATORVASTATIN 20 MG TAB PO SCH (23:50)
[2020-01-16] MEDS: THIAMINE 100 MG TAB PO SCH (23:50)
[2020-01-17] MEDS ORDERED: KCL 10MEQ/100ML SWI (KRUN) 10 MEQ in IV 1 EA IV ONE (00:30)
[2020-01-17] MEDS: ALBUTEROL 90 MCG/ACT 8GM HFA INHALER INH PRN (03:36)
[2020-01-17 06:15] VITALS: BP 86/54
[2020-01-17 06:19] LABS: HEMATOCRIT 25.2 % (42.0-52.0); MEAN CORPUSCULAR HEMOGLOBIN 34.2 pg (27.0-33.0); MEAN CORPUSCULAR HGB CONC 35.7 g/dl (32.0-36.5); MEAN CORPUSCULAR VOLUME 95.8 fl (80.0-96.0); RED BLOOD COUNT 2.63 10^6/uL (4.30-6.10)
[2020-01-17 06:21] LABS: PLATELET COUNT, AUTOMATED 36 10^3/uL (150-450)
[2020-01-17 06:44] LABS: ALBUMIN 2.4 GM/DL (3.2-5.2); ALT/SGPT 53 U/L (12-78); BILIRUBIN,TOTAL 1.9 MG/DL (0.2-1.0); BLOOD UREA NITROGEN 8 MG/DL (7-18); CALCIUM LEVEL 8.2 MG/DL (8.5-10.1); CARBON DIOXIDE LEVEL 27 MEQ/L (21-32); CHLORIDE LEVEL 93 MEQ/L (98-107); CREATININE FOR GFR 0.44 MG/DL (0.70-1.30); GLOMERULAR FILTRATION RATE > 60.0 (>56); GLUCOSE, FASTING 87 MG/DL (70-100); MAGNESIUM LEVEL 2.1 MG/DL (1.8-2.4); POTASSIUM SERUM 3.5 MEQ/L (3.5-5.1); SODIUM LEVEL 129 MEQ/L (136-145); TOTAL PROTEIN 5.8 GM/DL (6.4-8.2)
[2020-01-17 06:54] LABS: BLOOD UREA NITROGEN 8 MG/DL (7-18); CALCIUM LEVEL 8.5 MG/DL (8.5-10.1); CARBON DIOXIDE LEVEL 26 MEQ/L (21-32); CHLORIDE LEVEL 92 MEQ/L (98-107); CREATININE FOR GFR 0.47 MG/DL (0.70-1.30); GLOMERULAR FILTRATION RATE > 60.0 (>56); GLUCOSE, FASTING 89 MG/DL (70-100); POTASSIUM SERUM 3.5 MEQ/L (3.5-5.1); SODIUM LEVEL 128 MEQ/L (136-145)
[2020-01-17 06:55] VITALS: BP 88/56
[2020-01-17] MEDS ORDERED: NS 500 ML IV ONE (07:15)
[2020-01-17 09:00] VITALS: BP 82/84
[2020-01-17] MEDS: METOPROLOL TART 12.5 MG PER 1/2 TAB PO SCH (09:00)
--- NOTE | 2020-01-17 09:45 | ECGEPIP ---
[facility] - ED Test Date: 2020-01-16 Pat Name: ASAEL AMAYA Department: Room: - Gender: Male [employer]: arcelia : 1960 Requested By: ASAEL NAPIER Order Number: [id number] Reading MD: Rohit Tyler Measurements Intervals [place] Rate: 72 P: 74 GA: 176 QRS: 82 QRSD: 106 T: 60 QT: 246 QTc: 270 Interpretive Statements SINUS RHYTHM PRIOR INFERIOR INFARCT BASELINE ARTIFACT AFFECTS INTERPRETATION Electronically Signed on 01-17-2020 9:44:55 EST by Rohit Tyler
[2020-01-17] MEDS: CLOPIDOGREL 75 MG TAB PO SCH (09:48)
[2020-01-17] MEDS: MULTIVITAMINS/MINERALS THERAP 1 TAB PO SCH (09:48)
[2020-01-17] MEDS: FOLIC ACID 1 MG TAB PO SCH (09:48)
[2020-01-17] MEDS: THIAMINE 100 MG TAB PO SCH ×2 (09:48→21:14)
[2020-01-17 09:49] LABS: VITAMIN B12 LEVEL 608 PG/ML (247-911)
[2020-01-17 09:51] LABS: FOLATE 10.6 NG/ML (>5.4)
[2020-01-17 11:37] LABS: BLOOD UREA NITROGEN 8 MG/DL (7-18); CALCIUM LEVEL 8.7 MG/DL (8.5-10.1); CARBON DIOXIDE LEVEL 27 MEQ/L (21-32); CHLORIDE LEVEL 93 MEQ/L (98-107); CREATININE FOR GFR 0.77 MG/DL (0.70-1.30); GLOMERULAR FILTRATION RATE > 60.0 (>56); GLUCOSE, FASTING 160 MG/DL (70-100); POTASSIUM SERUM 3.5 MEQ/L (3.5-5.1); SODIUM LEVEL 128 MEQ/L (136-145)
[2020-01-17 14:00] VITALS: BP 83/53
--- NOTE | 2020-01-17 14:24 | IPNPDOC ---
Text Note Date of Service The patient was seen on 01/17/20. NOTE Subjective: Patient developed hypotension the morning with blood pressure 88/56. Patient stated that he feels better today. Denies fever, chills, nausea, vomiting, diarrhea or dysuria Objective: GENERAL APPEARANCE: NAD HEENT: no scleral icterus, no JVD, EOMI CARDIOVASCULAR: S1S2 LUNGS: CTA ABDOMEN: soft & not tender w palpitation MUSCULOSKELETAL: no cyanosis, no swelling INTEGUMENT: no generalized palor NEUROLOGICAL: cranial nerve function from 2-12 intact intact, follows commands, speech not dysarthric Assessment/Plan Patient is 59 years old male with past history of chronic alcoholism, coronary artery diseases with SD and stents placement, COPD, active smoker 2 packs in a day presented to the hospital with generalized weakness. Patient stated that he has been having generalized weakness for past 3 weeks and weakness became progressively worse. He was not able to walk for few days. Also patient stated that he lost his appetite. Of note, patient states that he usually drinks beer 6 bottles in the day. In emergency room patient was found to have sodium of 124, potassium 2.5, lactic acid 2.9, platelets 46. Urine toxic screen positive for alcohol. 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 (2) Alcohol abuse with intoxication [place] protocol (3) Hyponatremia Improved Secondary to most likely beer potomania Fluid restriction (4) Thrombocytopenia Secondary to alcoholism Anticoagulation on hold (5) COPD (chronic obstructive pulmonary disease) Continue inhalers (6) Coronary artery disease I started metoprolol, statin and aspirin Hypotension Midodrine started Transaminitis Secondary to alcohol abuse Will check liver ultrasound VS,Jaylin, I+O VS, Jaylin, I+O Laboratory Tests 01/16/20 14:55 01/16/20 19:13 01/16/20 23:00 01/17/20 05:33 01/17/20 10:36 Vital Signs Date Time Temp Pulse Resp B/P (MAP) Pulse Ox O2 Delivery O2 Flow Rate FiO2 01/17/20 09:00 82/54 01/17/20 09:00 95 01/17/20 06:15 99.7 16 97 Room Air I&O- Last 24 Hours up to 6 AM 01/17/20 06:00 Intake Total 1891.2 ml Output Total 400 ml Balance 1491.2 ml AYDE LLANES DO Jan 17, 2020 14:24
[2020-01-17] MEDS ORDERED: SODIUM CHLORIDE 1 GM TAB PO ONE (15:00)
[2020-01-17 15:07] LABS: BLOOD UREA NITROGEN 8 MG/DL (7-18); CALCIUM LEVEL 8.7 MG/DL (8.5-10.1); CARBON DIOXIDE LEVEL 28 MEQ/L (21-32); CHLORIDE LEVEL 96 MEQ/L (98-107); CREATININE FOR GFR 0.43 MG/DL (0.70-1.30); GLOMERULAR FILTRATION RATE > 60.0 (>56); GLUCOSE, FASTING 104 MG/DL (70-100); POTASSIUM SERUM 3.2 MEQ/L (3.5-5.1); SODIUM LEVEL 131 MEQ/L (136-145)
[2020-01-17] MEDS: MIDODRINE 5 MG TAB PO SCH (15:32)
[2020-01-17 17:40] LABS: APPEARANCE, URINE HAZY (CLEAR); BACTERIA, URINE AUTO NEGATIVE (NEGATIVE); BILIRUBIN, URINE AUTO 1+ (NEGATIVE); BLOOD, URINE BLOOD 1+ (NEGATIVE); COLOR, URINE AMBER (YELLOW); GLUCOSE, URINE (UA) AUTO NEGATIVE (NEGATIVE); KETONE, URINE AUTO 1+ mg/dL (NEGATIVE); LEUKOCYTE ESTERASE, URINE AUTO NEGATIVE (NEGATIVE); MUCUS, URINE SMALL (NEGATIVE); NITRITE, URINE AUTO NEGATIVE (NEGATIVE); PROTEIN, URINE AUTO 1+ mg/dL (NEGATIVE); RBC, URINE AUTO 7 /HPF (0-3); SQUAMOUS EPITHELIAL CELL UR AU 0 /HPF (0-6); WBC, URINE AUTO 1 /HPF (0-3)
[2020-01-17] MEDS ORDERED: ISOVUE-370 76% 100ML VIAL As Ordered ONE (19:38)
--- NOTE | 2020-01-17 20:33 | REPVR ---
PROCEDURE INFORMATION: Exam: CT Abdomen And Pelvis With Contrast Exam date and time: 01/17/2020 8:04 PM Age: 59 years old Clinical indication: Condition or disease; Other: Bladder malignancy TECHNIQUE: Imaging protocol: Computed tomography of the abdomen and pelvis with intravenous contrast. Radiation optimization: All CT scans at this facility use at least one of these dose optimization techniques: automated exposure control; mA and/or kV adjustment per patient size (includes targeted exams where dose is matched to clinical indication); or iterative reconstruction. Contrast material: ISOVUE 370; Contrast volume: 100 ml; Contrast route: INTRAVENOUS (IV); COMPARISON: CR Spine. Lumbosacral, complete 05/21/2019 3:43 PM FINDINGS: Liver: There is a diffuse decrease in hepatic parenchymal density, consistent with steatosis. Gallbladder and bile ducts: Mild dilatation of the common bile duct measuring up to 8.8 mm. No obstructing mass or choledocholithiasis demonstrated. No intrahepatic biliary dilatation demonstrated. Further evaluation with nonemergent MRCP could be considered if clinically desired. Pancreas: Visible nondilated pancreatic duct. Pancreas otherwise unremarkable. Spleen: Normal. No splenomegaly. Adrenal glands: Normal. No mass. Kidneys and ureters: Normal. No hydronephrosis. Stomach and bowel: Unremarkable. No obstruction. No mucosal thickening. Appendix: No evidence of appendicitis. Intraperitoneal space: Unremarkable. Vasculature: The aortoiliac vessels demonstrate mild atherosclerotic calcification. Lymph nodes: Unremarkable. No enlarged lymph nodes. Urinary bladder: Diffuse thickening of the bladder wall. Finding may be related to bladder outlet obstruction although occult neoplasm not excluded. Reproductive: Unremarkable as visualized. Bones/joints: Slight retrolisthesis of L3 on L4. Moderate central spinal stenosis L3-L4 and severe central spinal stenosis L4-L5. Bulging annulus L5-S1 without neural compromise. Soft tissues: Unremarkable. IMPRESSION: 1. There is a diffuse decrease in hepatic parenchymal density, consistent with steatosis. 2. Mild dilatation of the common bile duct measuring up to 8.8 mm. No obstructing mass or choledocholithiasis demonstrated. No intrahepatic biliary dilatation demonstrated. Further evaluation with nonemergent MRCP could be considered if clinically desired. 3. Diffuse thickening of the bladder wall. Finding may be related to bladder outlet obstruction although occult neoplasm not excluded. Electronically signed by: Surjit Ley On 01/17/2020 20:32:57 PM
[2020-01-17] MEDS: DOXAZOSIN MESYLATE 1 MG TAB PO SCH (20:57)
[2020-01-17 21:12] LABS: BLOOD UREA NITROGEN 8 MG/DL (7-18); CALCIUM LEVEL 8.4 MG/DL (8.5-10.1); CARBON DIOXIDE LEVEL 27 MEQ/L (21-32); CHLORIDE LEVEL 95 MEQ/L (98-107); CREATININE FOR GFR 0.46 MG/DL (0.70-1.30); GLOMERULAR FILTRATION RATE > 60.0 (>56); GLUCOSE, FASTING 102 MG/DL (70-100); POTASSIUM SERUM 3.4 MEQ/L (3.5-5.1); SODIUM LEVEL 129 MEQ/L (136-145)
[2020-01-17] MEDS: SODIUM CHLORIDE 1 GM TAB PO SCH (21:14)
[2020-01-17] MEDS: ATORVASTATIN 20 MG TAB PO SCH (21:14)
[2020-01-17 22:00] VITALS: BP 98/64
[2020-01-17 22:10] VITALS: BP 98/64
[2020-01-18 03:16] LABS: BLOOD UREA NITROGEN 7 MG/DL (7-18); CALCIUM LEVEL 8.1 MG/DL (8.5-10.1); CARBON DIOXIDE LEVEL 25 MEQ/L (21-32); CHLORIDE LEVEL 98 MEQ/L (98-107); GLOMERULAR FILTRATION RATE > 60.0 (>56); GLUCOSE, FASTING 105 MG/DL (70-100); POTASSIUM SERUM 3.3 MEQ/L (3.5-5.1); SODIUM LEVEL 131 MEQ/L (136-145)
[2020-01-18 06:00] VITALS: BP 92/54
[2020-01-18 06:29] VITALS: BP 92/54
--- NOTE | 2020-01-18 07:54 | REP ---
INDICATION: cirrhosis COMPARISON: None. TECHNIQUE: Real time medel scale ultrasound examination using curved array transducer. FINDINGS: Liver is hyperechoic suggesting fatty infiltration without focal hepatic lesion identified. No evidence for hepatomegaly. Pancreas is incompletely evaluated due to interposed bowel gas but visualized portions appear normal. The gallbladder demonstrates sludge and gravel without wall thickening or pericholecystic fluid. The common bile duct is mildly dilated to 8.5 mm without evidence for intrahepatic biliary dilatation. Right kidney is normal in reniform shape without hydronephrosis and measures 11.1 x 5.1 x 4.4 cm. No ascites in the visualized right upper quadrant. IMPRESSION: 1. Findings suggesting hepatosteatosis without focal hepatic lesion. 2. Cholelithiasis as described above. Common bile duct mildly distended without further sonographic evidence for acute cholecystitis. <Electronically signed by Kai Dexter > 01/18/20 0152
[2020-01-18 08:31] LABS: BLOOD UREA NITROGEN 6 MG/DL (7-18); CALCIUM LEVEL 8.4 MG/DL (8.5-10.1); CARBON DIOXIDE LEVEL 26 MEQ/L (21-32); CHLORIDE LEVEL 98 MEQ/L (98-107); CREATININE FOR GFR 0.49 MG/DL (0.70-1.30); GLOMERULAR FILTRATION RATE > 60.0 (>56); GLUCOSE, FASTING 102 MG/DL (70-100); POTASSIUM SERUM 3.3 MEQ/L (3.5-5.1); SODIUM LEVEL 132 MEQ/L (136-145)
[2020-01-18] MEDS: METOPROLOL TART 12.5 MG PER 1/2 TAB PO SCH (09:00)
[2020-01-18] MEDS: POTASSIUM CHLORIDE 10 MEQ SR TABLET PO SCH (09:30)
[2020-01-18] MEDS: MULTIVITAMINS/MINERALS THERAP 1 TAB PO SCH (09:30)
[2020-01-18] MEDS: CLOPIDOGREL 75 MG TAB PO SCH (09:31)
[2020-01-18] MEDS: MIDODRINE 5 MG TAB PO SCH ×3 (09:31→16:39)
[2020-01-18] MEDS: SODIUM CHLORIDE 1 GM TAB PO SCH ×2 (09:31→21:12)
[2020-01-18] MEDS: THIAMINE 100 MG TAB PO SCH ×2 (09:31→21:12)
[2020-01-18] MEDS: FOLIC ACID 1 MG TAB PO SCH (09:31)
--- NOTE | 2020-01-18 11:42 | IPNPDOC ---
Text Note Date of Service The patient was seen on 01/18/20. NOTE Subjective: No any acute events overnight. Denies fever, chills, nausea, vom iting, diarrhea or dysuria Objective: GENERAL APPEARANCE: NAD HEENT: no scleral icterus, no JVD, EOMI CARDIOVASCULAR: S1S2 LUNGS: CTA ABDOMEN: soft & not tender w palpitation MUSCULOSKELETAL: no cyanosis, no swelling INTEGUMENT: no generalized palor NEUROLOGICAL: cranial nerve function from 2-12 intact intact, follows commands, speech not dysarthric Assessment/Plan Patient is 59 years old male with past history of chronic alcoholism, coronary artery diseases with [place] and stents placement, COPD, active smoker 2 packs in a day presented to the hospital with generalized weakness. Patient stated that he has been having generalized weakness for past 3 weeks and weakness became progressively worse. He was not able to walk for few days. Also patient stated that he lost his appetite. Of note, patient states that he usually drinks beer 6 bottles in the day. In emergency room patient was found to have sodium of 124, potassium 2.5, lactic acid 2.9, platelets 46. Urine toxic screen positive for alcohol. 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 VS,Fishbone, I+O VS, Fishbone, I+O Laboratory Tests 01/17/20 14:22 01/17/20 20:41 01/18/20 02:42 01/18/20 07:52 Vital Signs Date Time Temp Pulse Resp B/P (MAP) Pulse Ox O2 Delivery O2 Flow Rate FiO2 01/18/20 09:00 92 95/58 01/18/20 06:00 99.0 18 100 Room Air I&O- Last 24 Hours up to 6 AM 01/18/20 06:00 Intake Total 1940 ml Output Total 100 ml Balance 1840 ml AYDE LLANES DO Jan 18, 2020 11:42
[2020-01-18 11:50] LABS: HEMATOCRIT 27.1 % (42.0-52.0); HEMOGLOBIN 9.3 g/dl (13.5-17.5); MEAN CORPUSCULAR HEMOGLOBIN 33.9 pg (27.0-33.0); MEAN CORPUSCULAR HGB CONC 34.3 g/dl (32.0-36.5); MEAN CORPUSCULAR VOLUME 98.9 fl (80.0-96.0); RED BLOOD COUNT 2.74 10^6/uL (4.30-6.10); WHITE BLOOD COUNT 4.7 10^3/uL (4.0-10.0)
[2020-01-18 11:54] LABS: PLATELET COUNT, AUTOMATED 37 10^3/uL (150-450)
[2020-01-18 12:35] VITALS: BP 91/55
[2020-01-18 14:00] VITALS: BP 95/62
[2020-01-18 16:39] VITALS: BP 96/62
[2020-01-18] MEDS: DOXAZOSIN MESYLATE 1 MG TAB PO SCH (20:55)
[2020-01-18] MEDS: ATORVASTATIN 20 MG TAB PO SCH (21:12)
[2020-01-18 22:00] VITALS: BP 92/58
[2020-01-19 06:00] VITALS: BP 95/82
[2020-01-19] MEDS: MIDODRINE 5 MG TAB PO SCH ×3 (08:57→16:26)
[2020-01-19] MEDS: MULTIVITAMINS/MINERALS THERAP 1 TAB PO SCH (08:57)
[2020-01-19] MEDS: SODIUM CHLORIDE 1 GM TAB PO SCH ×2 (08:57→21:03)
[2020-01-19] MEDS: CLOPIDOGREL 75 MG TAB PO SCH (08:57)
[2020-01-19] MEDS: POTASSIUM CHLORIDE 10 MEQ SR TABLET PO SCH (08:57)
[2020-01-19] MEDS: FOLIC ACID 1 MG TAB PO SCH (08:57)
[2020-01-19] MEDS: THIAMINE 100 MG TAB PO SCH (08:57)
[2020-01-19] MEDS: METOPROLOL TART 12.5 MG PER 1/2 TAB PO SCH (08:58)
[2020-01-19] MEDS: DOXAZOSIN MESYLATE 1 MG TAB PO SCH (21:00)
[2020-01-19] MEDS: ATORVASTATIN 20 MG TAB PO SCH (21:03)
[2020-01-20 05:28] VITALS: BP 84/40
[2020-01-20] MEDS ORDERED: NS 500 ML IV ONE (07:45)
[2020-01-20 08:40] LABS: BLOOD UREA NITROGEN 8 MG/DL (7-18); CALCIUM LEVEL 8.8 MG/DL (8.5-10.1); CARBON DIOXIDE LEVEL 24 MEQ/L (21-32); CHLORIDE LEVEL 103 MEQ/L (98-107); CREATININE FOR GFR 0.56 MG/DL (0.70-1.30); GLOMERULAR FILTRATION RATE > 60.0 (>56); GLUCOSE, FASTING 139 MG/DL (70-100); MAGNESIUM LEVEL 1.7 MG/DL (1.8-2.4); SODIUM LEVEL 135 MEQ/L (136-145)
[2020-01-20 08:42] LABS: HEMATOCRIT 30.5 % (42.0-52.0); HEMOGLOBIN 9.9 g/dl (13.5-17.5); MEAN CORPUSCULAR HEMOGLOBIN 33.3 pg (27.0-33.0); MEAN CORPUSCULAR HGB CONC 32.5 g/dl (32.0-36.5); MEAN CORPUSCULAR VOLUME 102.7 fl (80.0-96.0); RED BLOOD COUNT 2.97 10^6/uL (4.30-6.10); WHITE BLOOD COUNT 5.2 10^3/uL (4.0-10.0)
[2020-01-20 08:44] LABS: PLATELET COUNT, AUTOMATED 40 10^3/uL (150-450)
[2020-01-20] MEDS: SODIUM CHLORIDE 1 GM TAB PO SCH ×2 (09:29→20:11)
[2020-01-20] MEDS: NICOTINE 21MG/24HR 1 EA TRANSDERMAL TD SCH (09:29)
[2020-01-20] MEDS: MIDODRINE 5 MG TAB PO SCH ×3 (09:30→16:25)
[2020-01-20] MEDS: MULTIVITAMINS/MINERALS THERAP 1 TAB PO SCH (09:30)
[2020-01-20] MEDS: FOLIC ACID 1 MG TAB PO SCH (09:30)
[2020-01-20] MEDS: CLOPIDOGREL 75 MG TAB PO SCH (09:30)
[2020-01-20] MEDS: POTASSIUM CHLORIDE 10 MEQ SR TABLET PO SCH (09:30)
[2020-01-20] MEDS: DOXAZOSIN MESYLATE 1 MG TAB PO SCH (20:07)
[2020-01-20] MEDS: ATORVASTATIN 20 MG TAB PO SCH (20:11)
[2020-01-20] MEDS: ALBUTEROL 90 MCG/ACT 8GM HFA INHALER INH PRN (20:20)
[2020-01-20 22:00] VITALS: BP 102/66
[2020-01-21 06:00] VITALS: BP 96/48
[2020-01-21] MEDS: POTASSIUM CHLORIDE 10 MEQ SR TABLET PO SCH (10:21)
[2020-01-21] MEDS: SODIUM CHLORIDE 1 GM TAB PO SCH ×2 (10:21→20:01)
[2020-01-21] MEDS: MIDODRINE 5 MG TAB PO SCH ×3 (10:21→17:26)
[2020-01-21] MEDS: MULTIVITAMINS/MINERALS THERAP 1 TAB PO SCH (10:21)
[2020-01-21] MEDS: FOLIC ACID 1 MG TAB PO SCH (10:21)
[2020-01-21] MEDS: CLOPIDOGREL 75 MG TAB PO SCH (10:21)
[2020-01-21] MEDS: NICOTINE 21MG/24HR 1 EA TRANSDERMAL TD SCH (10:22)
[2020-01-21] MEDS: ATORVASTATIN 20 MG TAB PO SCH (20:01)
[2020-01-21] MEDS: DOXAZOSIN MESYLATE 1 MG TAB PO SCH (20:02)
[2020-01-22 06:00] VITALS: BP 100/58
[2020-01-22] MEDS: MIDODRINE 5 MG TAB PO SCH ×3 (09:30→16:00)
[2020-01-22] MEDS: POTASSIUM CHLORIDE 10 MEQ SR TABLET PO SCH (12:43)
[2020-01-22] MEDS: FOLIC ACID 1 MG TAB PO SCH (12:43)
[2020-01-22] MEDS: SODIUM CHLORIDE 1 GM TAB PO SCH ×2 (12:43→20:35)
[2020-01-22] MEDS: CLOPIDOGREL 75 MG TAB PO SCH (12:43)
[2020-01-22] MEDS: NICOTINE 21MG/24HR 1 EA TRANSDERMAL TD SCH (12:44)
[2020-01-22] MEDS: MULTIVITAMINS/MINERALS THERAP 1 TAB PO SCH (12:44)
[2020-01-22] MEDS: ATORVASTATIN 20 MG TAB PO SCH (20:35)
[2020-01-22] MEDS: DOXAZOSIN MESYLATE 1 MG TAB PO SCH (20:38)
[2020-01-22 20:47] VITALS: BP 86/58
[2020-01-23 06:00] VITALS: BP 101/69
[2020-01-23] MEDS: MIDODRINE 5 MG TAB PO SCH ×3 (09:46→17:19)
[2020-01-23] MEDS: SODIUM CHLORIDE 1 GM TAB PO SCH ×2 (13:01→21:24)
[2020-01-23] MEDS: MULTIVITAMINS/MINERALS THERAP 1 TAB PO SCH (13:01)
[2020-01-23] MEDS: FOLIC ACID 1 MG TAB PO SCH (13:01)
[2020-01-23] MEDS: NICOTINE 21MG/24HR 1 EA TRANSDERMAL TD SCH (13:01)
[2020-01-23] MEDS: MAGNESIUM OXIDE 400 MG TAB (MAG-OX) PO SCH ×2 (13:01→21:24)
[2020-01-23] MEDS: CLOPIDOGREL 75 MG TAB PO SCH (13:02)
[2020-01-23] MEDS: POTASSIUM CHLORIDE 10 MEQ SR TABLET PO SCH (13:02)
[2020-01-23] MEDS: ATORVASTATIN 20 MG TAB PO SCH (21:24)
[2020-01-23] MEDS: DOXAZOSIN MESYLATE 1 MG TAB PO SCH (21:25)
[2020-01-24 06:00] VITALS: BP 113/69
[2020-01-24] MEDS: MIDODRINE 5 MG TAB PO SCH ×3 (10:18→16:02)
[2020-01-24] MEDS: MAGNESIUM OXIDE 400 MG TAB (MAG-OX) PO SCH ×2 (10:18→20:22)
[2020-01-24] MEDS: SODIUM CHLORIDE 1 GM TAB PO SCH ×2 (10:18→20:21)
[2020-01-24] MEDS: CLOPIDOGREL 75 MG TAB PO SCH (10:18)
[2020-01-24] MEDS: MULTIVITAMINS/MINERALS THERAP 1 TAB PO SCH (10:18)
[2020-01-24] MEDS: FOLIC ACID 1 MG TAB PO SCH (10:19)
[2020-01-24] MEDS: NICOTINE 21MG/24HR 1 EA TRANSDERMAL TD SCH (10:19)
[2020-01-24] MEDS: POTASSIUM CHLORIDE 10 MEQ SR TABLET PO SCH (10:19)
--- NOTE | 2020-01-24 12:06 | IPNPDOC ---
Text Note Date of Service The patient was seen on 01/23/20. NOTE Subjective: No any acute events overnight. Denies fever, chills, nausea, vomiting, diarrhea or dysuria. Wants to sllep and does not want to be bothered. Refusing all labs. Physical Exam: VITALS: As below GENERAL APPEARANCE: NAD HEENT: no scleral icterus, no JVD, EOMI CARDIOVASCULAR: S1S2 regular, no rub/no murmur/no gallop LUNGS: CTA, no ronchi or wheezing ABDOMEN: soft & not tender w palpitation, with normal bowel sounds Extremities: no cyanosis, no edema NEUROLOGICAL: cranial nerve function from 2-12 intact intact, follows commands, speech not dysarthric Labs and Radiology: reviewed. Assessment/Plan: Patient is 59 years old male with past history of chronic alcoholism, coronary artery disease with [place] and stents placement, COPD, active smoker 2 packs in a day presented to the hospital with generalized weakness. Patient stated that he has been having generalized weakness for past 3 weeks and weakness became progressively worse. He was not able to walk for few days. Also patient stated that he lost his appetite. Of note, patient states that he usually drinks beer 6 bottles in the day. In emergency room patient was found to have sodium of 124, potassium 2.5, lactic acid 2.9, platelets 46. Urine toxic screen positive for alcohol. 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 May also have early cirrhosis not seen in CT or US liver Has thrombocytopenia. Hyponatremia Improved Secondary to most likely beer potomania Thrombocytopenia Secondary to bone marrow suppression by alcohol Anticoagulation on hold continue to monitor COPD (chronic obstructive pulmonary disease) Continue inhalers Coronary artery disease/ stents statin and Plavix Chronic Hypotension Midodrine Severe Lumber Central Spinal stenosis L4-L5 PT/OT Transaminitis Secondary to alcohol abuse resolved Dispo: STR. VS,Fishbone, I+O VS, Fishbone, I+O Vital Signs Date Time Temp Pulse Resp B/P (MAP) Pulse Ox O2 Delivery O2 Flow Rate FiO2 01/23/20 06:00 98.9 84 18 101/69 (80) 97 Room Air I&O- Last 24 Hours up to 6 AM 01/23/20 07:00 Intake Total 225 ml Output Total 675 ml Balance -450 ml DILLAN KILLIAN MD Jan 23, 2020 21:11
[2020-01-24 20:21] VITALS: BP 161/89
[2020-01-24] MEDS: DOXAZOSIN MESYLATE 1 MG TAB PO SCH (20:21)
[2020-01-24] MEDS: ATORVASTATIN 20 MG TAB PO SCH (20:21)
[2020-01-25 06:00] VITALS: BP 115/50
[2020-01-25] MEDS: MULTIVITAMINS/MINERALS THERAP 1 TAB PO SCH (09:56)
[2020-01-25] MEDS: FOLIC ACID 1 MG TAB PO SCH (09:56)
[2020-01-25] MEDS: MIDODRINE 5 MG TAB PO SCH ×2 (09:56→13:22)
[2020-01-25] MEDS: CLOPIDOGREL 75 MG TAB PO SCH (09:56)
[2020-01-25] MEDS: SODIUM CHLORIDE 1 GM TAB PO SCH (09:56)
[2020-01-25] MEDS: MAGNESIUM OXIDE 400 MG TAB (MAG-OX) PO SCH (09:56)
[2020-01-25] MEDS: POTASSIUM CHLORIDE 10 MEQ SR TABLET PO SCH (09:56)
[2020-01-25] MEDS: NICOTINE 21MG/24HR 1 EA TRANSDERMAL TD SCH (09:58)
[2020-01-25] MEDS ORDERED: FOLI1TAB11 PO (11:32)
[2020-01-25] MEDS ORDERED: VITMTA PO (11:32)
[2020-01-25] MEDS ORDERED: ATOR1TAB21 PO (11:32)
--- NOTE | 2020-01-25 18:20 | DS.PDOC ---
Discharge Summary General Date of Admission Jan 16, 2020 at 16:45 Date of Discharge 01/25/20 Discharge Summary PROCEDURES PERFORMED DURING STAY: [None]. DISCHARGE DIAGNOSES: Malnutrition Chronic alcoholism Macrocytic anemia Probable cirrhosis Thrombocytopenia Hyponatremia Hypotension COPD CAD s/p stents Severe Lumber spinal stenosis Generalized debility LUTS COMPLICATIONS/CHIEF COMPLAINT: Chronic Alcohol Abuse. HOSPITAL COURSE: Patient is 59 years old male with past history of chronic alcoholism, coronary artery disease with [place] and stents placement, COPD, active smoker 2 packs in a day presented to the hospital with generalized weakness. Patient stated that he has been having generalized weakness for 3 weeks prior to admission. The weakness became progressively worse. He was not able to walk for few days. Also patient stated that he lost his appetite. Of note, patient states that he usually drinks beer 6 bottles in the day. In emergency room patient was found to have sodium of 124, potassium 2.5, lactic acid 2.9, platelets 46. Urine toxic screen positive for alcohol. 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 May also have early cirrhosis not seen in CT or US liver Has thrombocytopenia. Hyponatremia Improved Secondary to most likely beer potomania Thrombocytopenia Secondary to bone marrow suppression by alcohol +/- cirrhosis will restart only plavix. ASA discontinued COPD (chronic obstructive pulmonary disease) Continue inhalers Coronary artery disease/ stents statin and Plavix Hypotension due to malnutrition and dehydration Am cortisol normal resolved. Macrocytic anemia Vit B12 and Folate normal. Probably due to alcohol abuse. Severe Lumber Central Spinal stenosis L4-L5 PT/OT Transaminitis Secondary to alcohol abuse resolved DISCHARGE MEDICATIONS: Please see below. ALLERGIES: Please see below. PHYSICAL EXAMINATION ON DISCHARGE: VITAL SIGNS: Please see below. GENERAL APPEARANCE: NAD HEENT: no scleral icterus, no JVD, EOMI CARDIOVASCULAR: S1S2 regular, no rub/no murmur/no gallop LUNGS: CTA, no ronchi or wheezing ABDOMEN: soft & not tender w palpitation, with normal bowel sounds Extremities: no cyanosis, no edema NEUROLOGICAL: No focal neuro deficits. LABORATORY DATA: Please see below. ACTIVITY: [As tolerated]. DIET: As tolerated DISPOSITION: 01 Home, Self-Care. DISCHARGE INSTRUCTIONS: PMD in 1 week DISCHARGE CONDITION: [Stable]. TIME SPENT ON DISCHARGE:35 minutes. Vital Signs/I&Os Vital Signs Date Time Temp Pulse Resp B/P (MAP) Pulse Ox O2 Delivery O2 Flow Rate FiO2 01/25/20 06:00 97.2 60 18 115/50 (71) 97 Room Air I&O- Last 24 Hours up to 6 AM 01/25/20 06:00 Intake Total 850 ml Output Total 1175 ml Balance -325 ml Laboratory Data CBC/BMP Item Value Date Time White Blood Count 5.2 10^3/uL 01/20/20 0750 Red Blood Count 2.97 10^6/uL L 01/20/20 0750 Hemoglobin 9.9 g/dl L 01/20/20 0750 Hematocrit 30.5 % L 01/20/20 0750 Mean Corpuscular Volume 102.7 fl H 01/20/20 0750 Mean Corpuscular Hemoglobin 33.3 pg H 01/20/20 0750 Mean Corpuscular Hemoglobin Concent 32.5 g/dl 01/20/20 0750 Red Cell Distribution Width 14.7 % H 01/20/20 0750 Platelet Count 40 10^3/uL L 01/20/20 0750 Sodium Level 135 MEQ/L L 01/20/20 0750 Potassium Level 4.0 MEQ/L # 01/20/20 0750 Chloride Level 103 MEQ/L 01/20/20 0750 Carbon Dioxide Level 24 MEQ/L 01/20/20 0750 Anion Gap 8 MEQ/L 01/20/20 0750 Blood Urea Nitrogen 8 MG/DL 01/20/20 0750 Creatinine 0.56 MG/DL L 01/20/20 0750 Glomerular Filtration Rate > 60.0 01/20/20 0750 Fasting Glucose 139 MG/DL H 01/20/20 0750 Calcium Level 8.8 MG/DL 01/20/20 0750 Magnesium Level 1.7 MG/DL L 01/20/20 0750 Discharge Medications Scheduled Atorvastatin Calcium (Atorvastatin Calcium) 20 Mg Tablet, 40 MG PO QHS Clopidogrel Bisulfate (Plavix) 75 Mg Tablet, 75 MG PO DAILY, (Reported) Doxazosin Mesylate (Doxazosin Mesylate) 1 Mg Tab, 1 MG PO QHS, (Reported) Ergocalciferol (Vitamin D2) (Drisdol) 1,250 Mcg Capsule, 1,250 MCG PO 1XWK, (Reported) FRIDAY Folic Acid (Folic Acid) 1 Mg Tablet, 1 MG PO DAILY Multivitamins (Thera M Plus Tablet) 1 Each Tablet, 1 TAB PO DAILY Scheduled PRN Albuterol Sulfate (Ventolin Hfa) 108 Mcg/Act Aer, 2 PUFFS INH Q4H PRN for SOB/WHEEZING, (Reported) Fluticasone Propionate (Fluticasone Propionate) 16 Gm Weinert.susp, 1 SPRAY NARES BID PRN for CONGESTION, (Reported) Allergies Coded Allergies: lisinopril (Verified Adverse Reaction, Intermediate, CHESTPAIN, 08/31/19) DILLAN KILLIAN MD Jan 25, 2020 18:20
== END 2020-01-25 14:14 | disposition home health service (06) | DRG 421 ==
LOC: EDBD 14:14 → M ED 14:14 → M ED INP 16:45 → ENRESERV 17:08 → M MSPAV 18:11
PROVIDERS: ADMIT Internal Medicine; ATTEND Internal Medicine Nephrology
DX: E46 Unspecified protein-calorie malnutrition (principal); D69.59 Other secondary thrombocytopenia; I95.9 Hypotension, unspecified; K70.30 Alcoholic cirrhosis of liver without ascites; E87.1 Hypo-osmolality and hyponatremia; R53.1 Weakness; R62.7 Adult failure to thrive; F10.229 Alcohol dependence with intoxication, unspecified; D53.9 Nutritional anemia, unspecified; J44.9 Chronic obstructive pulmonary disease, unspecified; M48.061 Spinal stenosis, lumbar region without neurogenic claudication; R74.01 Elevation of levels of liver transaminase levels; I25.10 Atherosclerotic heart disease of native coronary artery without angina pectoris; I25.2 Old myocardial infarction; Z95.5 Presence of coronary angioplasty implant and graft; F17.200 Nicotine dependence, unspecified, uncomplicated; Z79.899 Other long term (current) drug therapy; Z88.8 Allergy status to other drugs, medicaments and biological substances; Z20.828 Contact with and (suspected) exposure to other viral communicable diseases

== ENCOUNTER 2020-02-23 09:56 | Inpatient (IN) | payer OTHER ==
[2020-02-23] VITALS (18 sets, daily range): BP systolic 51–121; BP diastolic 35–63
[~2020-02-23] VITALS: Ht 170.2 cm; Wt 60.3 kg
[2020-02-23] MEDS: CHLORHEXIDINE GLUCONATE 0.12 % 15ML UDC (PERIDEX ORAL RINSE) MT SCH ×2 (09:00→21:00)
[~2020-02-23 09:56] MED LIST changes: +ASPI81TA26 PO; +ATOR1TAB21 PO; +DRIS50003 PO; +FLUTISP NARES; +FOLI1TAB11 PO; +PLAV1TAB2 PO; +VITMTA PO
[2020-02-23] MEDS ORDERED: ETOMIDATE INJ 20MG/10ML VIAL IV STA (10:03)
[2020-02-23] MEDS ORDERED: SUCCINYLCHOLINE INJ 200 MG/10 ML VIAL (J0330) IV STA (10:04)
[2020-02-23] MEDS ORDERED: NS 1,000 ML IV ONE ×4 (10:06→17:15)
[2020-02-23] MEDS ORDERED: NOREPINEPHRINE 4 MG/4 ML AMP As Ordered ONE (10:11)
[2020-02-23] MEDS ORDERED: NOREPINEPHRINE BITARTRATE 8 MG in D5W 492 ML IV SCH (10:15)
[2020-02-23] MEDS ORDERED: CEFEPIME HCL 2 GM in D5W MINI-BAG PLUS 50 ML IV ONE (10:15)
[2020-02-23] MEDS ORDERED: THIAMINE 200MG/2ML VIAL (J3411 PER 100MG) IV ONE (10:15)
[2020-02-23 10:33] LABS: HEMATOCRIT 21.8 % (42.0-52.0); MEAN CORPUSCULAR HEMOGLOBIN 34.6 pg (27.0-33.0); MEAN CORPUSCULAR HGB CONC 30.3 g/dl (32.0-36.5); RED BLOOD COUNT 1.91 10^6/uL (4.30-6.10); WHITE BLOOD COUNT 7.4 10^3/uL (4.0-10.0)
[2020-02-23 10:37] LABS: HEMOGLOBIN 6.6 g/dl (13.5-17.5); MEAN CORPUSCULAR VOLUME 114.1 fl (80.0-96.0); PLATELET COUNT, AUTOMATED 73 10^3/uL (150-450)
--- NOTE | 2020-02-23 10:40 | REP ---
INDICATION: Altered Mental Status. COMPARISON: January 16, 2020. TECHNIQUE: Portable upright AP chest radiograph. FINDINGS: Endotracheal tube is seen in good position just below the proximal clavicles. Oxygen delivery tubing is seen. Monitoring electrodes are noted. The heart is not enlarged. No definite infiltrate is seen in the lung campos. The pleural angles are sharp. Pulmonary vasculature is not increased. No bony abnormality.. IMPRESSION: Endotracheal tube in good position. No definite infiltrate. Heart size is normal.. <Electronically signed by Daquan Scott > 02/23/20 1037
[2020-02-23 10:47] LABS: INR 2.94; PROTHROMBIN TIME 31.3 SECONDS (12.5-14.3)
[2020-02-23 10:54] LABS: OSMOLALITY SERUM 352 MOSM/KG (275-295)
[2020-02-23 10:56] LABS: AMPHETAMINES LEVEL URINE NEGATIVE (NEGATIVE); BARBITURATES URINE NEGATIVE (NEGATIVE); BENZODIAZEPINES URINE NEGATIVE (NEGATIVE); CANNABINOIDS URINE POSITIVE (NEGATIVE); COCAINE METABOLITE URINE NEGATIVE (NEGATIVE); METHADONE URINE NEGATIVE (NEGATIVE); OPIATES URINE NEGATIVE (NEGATIVE); PHENCYCLIDINE URINE NEGATIVE (NEGATIVE)
[2020-02-23 11:00] LABS: LYMPHOCYTES 20 % (16-44); MONOCYTES 3 % (0-5); NEUTROPHILS 65 % (28-66)
[2020-02-23] MEDS ORDERED: PANTOPRAZOLE SODIUM 40 MG in D5W 50 ML IV SCH (11:00)
[2020-02-23] MEDS ORDERED: PANTOPRAZOLE 40MG VIAL (C9113 PER 1) IV ONE (11:00)
[2020-02-23 11:01] LABS: ANISOCYTOSIS 2+; PLATELET ESTIMATE DECREASED (NORMAL)
--- NOTE | 2020-02-23 11:01 | REP ---
INDICATION: altred. Altered mental status. COMPARISON: Comparison cervical spine CT study August 31, 2019.. TECHNIQUE: Helical scanning is acquired and overlapping 2 mm high resolution axial images were generated and reviewed at bone and soft tissue window settings. Coronal and sagittal multiplanar re-formations images are generated. FINDINGS: There is no evidence of cervical spine element fracture. No skull base fracture is seen. Cervical vertebral body heights are preserved. Alignment is normal. Facet joints are normally aligned bilaterally at each cervical level on multiplanar re-formations images. There is no evidence of intraspinal or paraspinal hematoma. No extra vertebral abnormality is seen. There is degenerative disc disease again noted most pronounced at C5-6 and C6-7 unchanged. There is bilateral uncovertebral spurring producing foraminal narrowing at these 2 levels. No fracture or subluxation is seen. Or 0 tracheal and oral esophageal tube catheters are noted in place. There is some fluid in the upper esophagus surround the NG tube. Vascular calcification is noted in the carotid artery distribution. Emphysematous changes are seen in the lung apices. IMPRESSION: Degenerative spondylosis changes. Oral tracheal and oral esophageal catheters. No traumatic bony abnormality.. <Electronically signed by Daquan Scott > 02/23/20 [id number]
--- NOTE | 2020-02-23 11:04 | REP ---
INDICATION: altred. Altered mental status. COMPARISON: Comparison head CT study January 16, 2020.. TECHNIQUE: Helical scanning is acquired. 5 mm axial images were reformatted. Coronal MPR images were generated. FINDINGS: On bone window settings, the patient is scanned turned somewhat to the right. No bony destructive lesion or fracture is seen. There are air-fluid levels in the maxillary sinuses bilaterally. No intraorbital abnormality is seen. On soft tissue window settings, there is mild generalized volume loss. Minimal small vessel changes are noted. No evidence of infarct, hemorrhage, extra-axial fluid collection, mass or midline shift. IMPRESSION: Vascular calcification and mild generalized volume loss small vessel changes. No acute intracranial abnormality.. <Electronically signed by Daquan Scott > 02/23/20 1100
--- NOTE | 2020-02-23 11:04 | REP ---
INDICATION: altred. COMPARISON: Portable AP supine plain film study of the chest performed earlier today and chest CT dated 08/31/2019. TECHNIQUE: Chest CT without IV contrast. FINDINGS: There is dependent atelectasis in the posterior lung campos bilaterally, as an interval change. There are no pleural effusions. There are no lung masses or nodules although small nodules could be in the dependent atelectasis. There is an endotracheal tube with the tip in satisfactory location in the trachea above the soy. There is a nasogastric tube terminating satisfactorily in the gastric fundus. There is no mediastinal lymph node enlargement or mass. No axillary lymph node enlargement. The study is insensitive for hilar lymph node enlargement in the absence of IV contrast. The unenhanced a aortic arch is unremarkable. Cardiac size is normal. There is no pericardial effusion. There is calcified atheroma in the coronary arteries. The visualized upper abdominal contents are unremarkable. IMPRESSION: Dependent atelectasis in the lung campos posteriorly as an interval change. There are no pleural effusions. No nodules or masses. No mediastinal adenopathy or mass. Calcified atheroma in the coronary arteries. The cardiac size is normal. The ETT and NG tube are in satisfactory positions. <Electronically signed by Clem Vasquez > 02/23/20 1100
[2020-02-23 11:10] LABS: ACETAMINOPHEN LEVEL 4.3 UG/ML (10.0-30.0); ALBUMIN 1.2 GM/DL (3.2-5.2); ALT/SGPT 70 U/L (12-78); BILIRUBIN,DIRECT 1.1 MG/DL (0.0-0.2); BILIRUBIN,TOTAL 1.8 MG/DL (0.2-1.0); BLOOD UREA NITROGEN 23 MG/DL (7-18); CALCIUM LEVEL 6.8 MG/DL (8.5-10.1); CARBON DIOXIDE LEVEL 13 MEQ/L (21-32); CHLORIDE LEVEL 81 MEQ/L (98-107); CK-MB VALUE MASS 10.2 NG/ML (<3.6); CPK CREATINE PHOSPHOKINASE 165 U/L (39-308); CREATININE FOR GFR 1.66 MG/DL (0.70-1.30); ETHYL ALCOHOL (ETHANOL) 0.341 % (0.000-0.010); GLOMERULAR FILTRATION RATE 45.7 (>56); GLUCOSE, FASTING 152 MG/DL (70-100); MAGNESIUM LEVEL 2.3 MG/DL (1.8-2.4); MB/CK RELATIVE INDEX 6.18 (< OR =4); POTASSIUM SERUM 5.6 MEQ/L (3.5-5.1); SALICYLATE LEVEL < 1.7 MG/DL (5.0-30.0); SODIUM LEVEL 119 MEQ/L (136-145); TOTAL PROTEIN 4.3 GM/DL (6.4-8.2); TROPONIN I 0.07 NG/ML (< 0.10)
--- NOTE | 2020-02-23 11:15 | REP ---
INDICATION: altred. COMPARISON: Abdomen and pelvis CT dated 11/28/2019. TECHNIQUE: Abdomen and pelvis CT without IV or bowel contrast. FINDINGS: There is abdominal ascites surrounding the spleen as an interval change. Abdominal ascites in the right and left colic gutters extending inferiorly into the pelvis also an interval change. There is decreased density throughout the hepatic parenchyma compatible with hepato steatosis. No focal hepatic masses are identified. The gallbladder, pancreas and spleen are otherwise unremarkable. The adrenals and kidneys are unremarkable. Abdominal aorta is unremarkable except for occasional calcified atheroma. There is no periaortic adenopathy or mass. There is no bowel distention or obstruction. No mesenteric adenopathy. Pelvis: There is a bladder catheter. There is a is small volume of air in the bladder lumen anteriorly. The bladder wall thickening identified on the comparison study is no longer appreciated. The bladder appears to be distended to a greater degree today. No pelvic adenopathy is identified, however there is pelvic ascites as previously described. IMPRESSION: Abdominal ascites throughout the abdomen and pelvis as described. Hepato steatosis. No abdominal or pelvic adenopathy or mass. Bladder catheter. The bladder is distended to graded degree than previously and the bladder wall thickening identified previously is no longer appreciated. No focal bladder wall masses or nodules are identified by CT. There are no lytic, blastic or destructive skeletal changes. <Electronically signed by Clem Vasquez > 02/23/20 1111
[2020-02-23 11:17] LABS: RSV AMPLIFICATION NEGATIVE (NEGATIVE)
[2020-02-23] MEDS ORDERED: NS IV ONE (12:00)
[2020-02-23] MEDS ORDERED: FOMEPIZOLE IV ONE (12:00)
[2020-02-23] MEDS ORDERED: VITMTA PO (12:21)
[2020-02-23] MEDS ORDERED: MELO7.5T35 PO (12:21)
[2020-02-23] MEDS ORDERED: FOLI1TAB11 PO (12:21)
[2020-02-23] MEDS ORDERED: SODIUM BICARBONATE 8.4% INJ 50 ML SYRINGE As Ordered ONE (12:21)
[2020-02-23] MEDS ORDERED: ATOR40TA75 PO (12:21)
[2020-02-23] MEDS ORDERED: NS 1,000 ML IV SCH (12:23)
[2020-02-23] MEDS ORDERED: PATIENT COMMENT (12:23)
[2020-02-23] MEDS ORDERED: SODIUM BICARBONATE 8.4% INJ 50 ML SYRINGE IV STA ×2 (12:25→17:48)
[2020-02-23] MEDS ORDERED: MIDAZOLAM INJ 2MG/2ML VIAL (J2250 PER 1MG) IV PRN (12:30)
[2020-02-23 13:29] LABS: ABG BASE EXCESS -22.2 (-2.0-2.0); ABG HCO3 8.9 MEQ/L (22.0-26.0); ABG O2 SATURATION 99.7 % (95.0-99.0); ABG PARTIAL PRESSURE CO2 43.5 mmHg (35.0-45.0); ABG PARTIAL PRESSURE O2 277.4 mmHg (75.0-100.0); ABG STANDARD HCO3 7.9 MEQ/L (22.0-26.0); ABG TOTAL CO2 10.3 MEQ/L (22.0-29.0)
[2020-02-23 13:32] LABS: ABG pH (ARTERIAL) 6.931 UNITS (7.350-7.450)
--- NOTE | 2020-02-23 13:58 | CCN ---
CRITICAL CARE NOTE DATE: 02/23/2020 I was called to the emergency department to evaluate this 59-year-old male, found by neighbors poorly responsive. Emergency medical services (EMS) responded and found him apneic with slow pulses. In the emergency department an endotracheal tube was placed. Fluid resuscitation was initiated, and pressors were applied. His [place] Coma Scale on admission was 3. On review the medical record, there is a past medical history of alcoholism, coronary artery disease, suffered a myocardial infarction and stent placement in 2018. He has obstructive lung disease, is an active 2 pack per day smoker, and has cirrhosis. Attempts to identify family members were unsuccessful. At bedside, he is unresponsive. Temperature is 94, pulse rate 34, now up to 75, respiratory rate is 14/14 delivered, blood pressure 61/33 on Levophed. His weight is 60 kg. HEENT: His head is atraumatic. His pupils are 5 mm and slugging. There is no extraocular motion. There is an endotracheal tube at 24 cm, an orogastric tube in place. Mucosa is dry. Heart sounds are regular without appreciate murmur. Chest is hyperinflated. Breath sounds are coarse, diminished. Expiratory phase is prolonged. Abdomen is soft, sunken with no appreciable mass. Extremities show muscle wasting, and there is flaccidity. DIAGNOSTIC STUDIES: His white cell count is 7.4, hemoglobin 6.6, hematocrit 21.8, platelet count 73,000. Differential white cell count shows 65% neutrophils and 12% bands. His sodium is 119, potassium 5.6, chloride 81, CO2 of 13, BUN is 23, creatinine 1.6, glucose 152. Serum osmolarity 352. Lactic acid level 16, calcium is 6.8, and an albumin of 1.2. His AST is 441, ALT is 70, alkaline phosphatase 208. The PT is 31 with an INR of 2.9. Urine toxicology showed positive for cannabinoids and alcohol. Serology was negative for influenza, RSV, and COVID virus. Arterial blood gases initially shows a pH of 7.09, pCO2 of 32, pO2 of 110. Repeat arterial blood gases show a pH of 6.86, pCO2 of 53, and a pO2 of 82. Chest imaging shows hyperinflation of the lungs. Tubes and lines in good position. Abdominal/pelvic CT was performed in the emergency department and shows ascites, hepatic steatosis. 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 A head CT scan showed vascular calcification, generalized volume loss, but no acute intracranial abnormality. Chest CT scan shows atelectasis. No effusions and nasogastric (NG) tube and endotracheal (ET) tube to be in good position. Electrocardiogram is similar to those previously performed at a recent hospitalization. The primary problem requiring critical attention is shock. I suspect this is hypovolemic. Fluid has been administered. We will initiate Levophed. Titrate to a mean arterial pressure of 65. Respiratory failure: We will initiate mechanical ventilation and increase minute volume to attempt to compensate for a profound metabolic acidosis. Obtundation: The patient has a presenting [place] Coma Scale of 3. This may be multifactorial. I suspect toxic metabolic and drug effect. Hypothermia. We will initiate external warming. Hyponatremia. I suspect this is hypovolemic. Intravenous (IVs) will be infused, and we will recheck lab in a few hours. We will also check a urine osmolarity. Infectious disease: In light of the bandemia, will check blood, urine, and sputum cultures and initiate empiric antibiotic therapy. Acute kidney injury. We will initiate hydration and recheck labs. The patient may need renal replacement therapy. Hyperkalemia: I suspect this will be addressed by correcting his metabolic acidosis; however, we will repeat labs at 6 p.m. Deep venous thrombosis (DVT) and ulcer prophylaxis will be initiated. I have reviewed the case with the emergency department physicians and the ICU team. We will attempt to facilitate transfer as soon as possible. The patient's condition is very critical. Prognosis is poor. Two hours and 12 minutes was spent in the provision of bedside critical care and coordination, excluding any procedure time.
[2020-02-23] MEDS: IPRATROPIUM 0.5MG/ALBUTEROL 2.5MG INH SOL UD 3ML (DUONEB) NEB SCH ×3 (16:04→19:32)
[2020-02-23] MEDS: NOREPINEPHRINE BITARTRATE 8 MG in D5W 492 ML IV SCH ×2 (16:18→20:36)
[2020-02-23] MEDS ORDERED: SODIUM CHLORIDE 0.9% 1000ML IV ONE (17:15)
[2020-02-23] MEDS ORDERED: VASOPRESSIN INJ 20 UNITS in NS 499 ML IV SCH ×2 (17:15→18:00)
[2020-02-23 17:36] LABS: ABG BASE EXCESS -29.5 (-2.0-2.0); ABG HCO3 3.7 MEQ/L (22.0-26.0); ABG O2 SATURATION 99.1 % (95.0-99.0); ABG STANDARD HCO3 4.2 MEQ/L (22.0-26.0); ABG TOTAL CO2 4.4 MEQ/L (22.0-29.0)
[2020-02-23 17:38] LABS: ABG pH (ARTERIAL) 6.806 UNITS (7.350-7.450)
[2020-02-23] MEDS ORDERED: cefoTEtan DISODIUM 1 GM in D5W MINI-BAG PLUS 50 ML IV SCH (18:00)
[2020-02-23] MEDS ORDERED: VASOPRESSIN INJ 20 UNITS in NS 500 ML IV SCH (18:00)
[2020-02-23 18:36] LABS: HEMATOCRIT 24.5 % (42.0-52.0); HEMOGLOBIN 7.3 g/dl (13.5-17.5)
[2020-02-23] MEDS ORDERED: SODIUM BICARBONATE 150 MEQ in D5W 1,000 ML IV SCH (19:00)
[2020-02-23 19:12] LABS: ALBUMIN 0.8 GM/DL (3.2-5.2); CALCIUM LEVEL 5.4 MG/DL (8.5-10.1); CK-MB VALUE MASS 60.6 NG/ML (<3.6); CREATININE FOR GFR 1.57 MG/DL (0.70-1.30); GLOMERULAR FILTRATION RATE 48.7 (>56); MB/CK RELATIVE INDEX 5.49 (< OR =4); PHOSPHORUS LEVEL 7.9 MG/DL (2.5-4.9); POTASSIUM SERUM 4.7 MEQ/L (3.5-5.1)
[2020-02-23] MEDS ORDERED: EPINEPHrine HCL INJ 1 MG in D5W 240 ML IV SCH (19:30)
[2020-02-23] MEDS ORDERED: HEPARIN SOD (PORCINE) 5000UNITS/ML 1ML VIAL/SYRINGE SC SCH (22:00)
[2020-02-24] MEDS: NOREPINEPHRINE BITARTRATE 8 MG in D5W 492 ML IV SCH (00:52)
[2020-02-24] MEDS ORDERED: PANTOPRAZOLE 40MG VIAL (C9113 PER 1) IV SCH (09:00)
--- NOTE | 2020-02-24 12:41 | CCN ---
CRITICAL CARE NOTE ADDENDUM DATE: 02/23/2020 I was called back emergently to the hospital in light of a falling blood pressure. Nurse reported 30/palpable via Doppler. Arterial blood gases show a severe metabolic acidosis, and the vent was adjusted to increase minute ventilation. He was given some intravenous (IV) bicarbonate, and pressors were increased. At bedside, his temperature is 94, pulse rate 91, respirations 20/20 delivered. No spontaneous breaths. Blood pressure 40/palpable. HEENT: There is copious blood from his mouth. The nasogastric (NG) tube is bloody but not actively draining. There is an endotracheal tube at 24 cm. Pupils are 4-5 mm and sluggish. There is no spontaneous movement. His [place] Coma Scale is 3. Heart sounds are regular. Breath sounds coarse and diminished. Expiratory phase is prolonged. Abdomen is distended with ascites. Extremities are cold. DIAGNOSTIC STUDIES: An arterial blood gas shows a pH of 6.8, pCO2 of 24, pO2 of 254 on pressure control 25/5, rate of 20, 100% FiO2. His hemoglobin is up to 7.3, hematocrit is up to 24.5 after 2 units of blood transfusion. Sodium is now 128, potassium 4.7, chloride 91, CO2 is 10, BUN 23, creatinine 1.57, glucose 168. CPK is 11,003. Lactic acid level is 15.9. The primary problem requiring critical attention is circulatory shock. I suspect he is having hemorrhagic shock. I will type and screen for additional blood. I am concerned that there may be esophageal varices, though there is little we can do at this point given his critical illness. He is on maximal doses of Levophed and vasopressin. Will add IV epinephrine. Metabolic acidosis: His creatine phosphokinase (CPK) is elevated. I am concerned over the possibility of gut ischemia, as his lactic level is very high. We will add bicarbonate drip. Respiratory failure: Blood gases are acceptable. I am intentionally increasing minute ventilation to compensate for the profound metabolic acidosis. Hyponatremia: This is related to hypovolemia. Infectious disease: Empiric antibiotics have been started. This well could be sepsis. If it is, I would suspect an abdominal source. Acute kidney injury, likely secondary to shock with acute tubular necrosis (ATN). His urine output has been minimal. Toxicology studies were positive for marijuana and alcohol. The results of toxicology for methanol and ethylene glycol are pending. The patient did get a dose of fomepizole in the emergency department. Nursing and social work job titles have been unsuccessful in identifying any family for us to notify. With maximal resuscitative efforts in place, the patient is responding poorly. His overall prognosis at this point is poor. One hour and 52 minutes was spent in the provision of bedside critical care and coordination.
--- NOTE | 2020-02-24 13:16 | ECGEPIP ---
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
--- NOTE | 2020-03-15 16:55 | DSES ---
DISCHARGE SUMMARY DATE OF ADMISSION: 02/23/2020 DATE OF DISCHARGE: 02/24/2020 DISCHARGE DIAGNOSES: 1. Circulatory shock. 2. Respiratory failure requiring intubation and mechanical ventilatory support. 3. Toxic encephalopathy. 4. Hypothermia. 5. Hyponatremia. 6. Acute kidney injury. 7. Hyperkalemia. 8. Anemia. BRIEF HISTORY: The patient is a 59-year-old male who was seen in the Emergency Department having been brought by EMS who found him apneic with bradycardic pulse. In the Emergency Department resuscitation was initiated. An endotracheal tube was placed and fluid resuscitation performed. His [place] coma scale on admission was 3. For further details of his history, see the dictated critical care note. PHYSICAL EXAMINATION AT THE TIME OF ADMISSION: VITAL SIGNS: His temperature was 94, pulse rate 34, respirations 14, blood pressure 61/33 on Levophed. HEENT: His head was atraumatic. Pupils were 5 mm and sluggish to respond. No extraocular motions. Endotracheal tube at 24 cm. [address] tube in place. CHEST: Hyperinflated. LUNGS: Breath sounds coarse. ABDOMEN: Soft. EXTREMITIES: Muscle wasting. DIAGNOSTIC STUDIES: On admission the white cell count was 8.5, hemoglobin 6.6, hematocrit 21.8 with a platelet count of 73,000. Repeat H&H was 7.3 and 24.5. On admission his electrolytes were: Sodium 128, potassium 4.7, chloride 91, CO2 10, BUN 23, creatinine 1.57, glucose 168. His lactic acid level on admission was 16, repeat 15.9, calcium level 5.4. CPK 1,103, MB fraction 5.48. Albumin was 0.8. On admission his pH was 6.93, pco2 43, pO2 277. Later pH was 6.8, pco2 24, po2 254. Urine screen was positive for cannabis and alcohol level 0.341. HOSPITAL COURSE: The patient was seen in the Emergency Department after initial resuscitation was started. Orders were written for admission and for fluid bolus. Additional pressors were ordered, and he was transferred to the Intensive Care Unit. Resuscitation continued. He received blood and fluids and aggressive resuscitative efforts. Despite optimal resuscitative efforts, his laboratory studies did not improve. His clinical status progressively deteriorated. In the behavioral interventionist hours of 02/23 despite maximal fluid resuscitation and maximal pressors, blood pressure was unable to be obtained and as resuscitation had failed, efforts were stopped and he was declared at 1:10 a.m. Efforts by the ED, PFS and nursing staff to identify next of kin were unsuccessful.[place] [facility] [place]
== END 2020-02-24 02:15 | disposition expired | DRG 196 ==
LOC: M ED 09:56 → M ED INP 12:23 → ENRESERV 13:06 → M PCU 14:15
PROVIDERS: ADMIT Internal Medicine Pulmonary Disease; ATTEND Internal Medicine Pulmonary Disease
PROC: 0BH17EZ Insertion of Endotracheal Airway into Trachea, Via Natural or Artificial Opening (ICD-10-PCS; principal; 2020-02-23)
PROC: 5A1935Z Respiratory Ventilation, Less than 24 Consecutive Hours (ICD-10-PCS; 2020-02-23)
DX: R57.8 Other shock (principal); N17.0 Acute kidney failure with tubular necrosis; J96.00 Acute respiratory failure, unspecified whether with hypoxia or hypercapnia; E87.2 Acidosis; R18.8 Other ascites; E87.1 Hypo-osmolality and hyponatremia; E87.5 Hyperkalemia; J44.9 Chronic obstructive pulmonary disease, unspecified; K76.0 Fatty (change of) liver, not elsewhere classified; F10.20 Alcohol dependence, uncomplicated; I25.10 Atherosclerotic heart disease of native coronary artery without angina pectoris; I25.2 Old myocardial infarction; Z95.5 Presence of coronary angioplasty implant and graft; F17.200 Nicotine dependence, unspecified, uncomplicated; R68.0 Hypothermia, not associated with low environmental temperature; Z20.828 Contact with and (suspected) exposure to other viral communicable diseases; R40.2 Coma